=== PATIENT | female | born 1960 | race Caucasian/White ===

== ENCOUNTER 2016-09-19 13:51 | Emergency (ER) | payer MEDICARE ==
[~2016-09-19 13:51] MED LIST: /ESCI20TA; /ESOM40CA; ABIL15TA; ACET500C; ADDE10TA; BACL10TA2; GEOD20CA14; IBUP400T OR; KLON0.5T; MOTR200T4; MOTR200T4 PO; NEUR100C OR; NEUR300C; NEUR300C OR; NEUR400C; PAXI20TA OR; SEROQUEL; TRAM50TA2; TRAZ50TA; XANA2TAB2 OR; ZYPR10TA OR; ZYPR10TA PO; ZYPR15TA; ZYPR5TAB; advair diskus; albuterol; no home medications
[2016-09-19 14:44] LABS: MEAN CORPUSCULAR HEMOGLOBIN 33.9 pg (27.0-33.0); MEAN CORPUSCULAR HGB CONC 33.7 g/dl (32.0-36.5); MEAN CORPUSCULAR VOLUME 100.5 fl (80.0-96.0); RED CELL DISTRIBUTION WIDTH 13.2 % (11.5-14.5); WHITE BLOOD COUNT 5.9 K/mm3 (4.0-10.0)
[2016-09-19 14:56] LABS: AMPHETAMINES LEVEL URINE NEGATIVE (NEGATIVE); BENZODIAZEPINES URINE NEGATIVE (NEGATIVE); COCAINE METABOLITE URINE NEGATIVE (NEGATIVE); CONTROL LINE INT CTR LINE PRESENT; METHADONE URINE NEGATIVE (NEGATIVE); OPIATES URINE NEGATIVE (NEGATIVE); TRICYCLIC ANTIDEPRESS URINE POSITIVE (NEGATIVE)
[2016-09-19 15:16] LABS: ALBUMIN 4.2 GM/DL (3.2-5.2); ALBUMIN/GLOBULIN RATIO 1.68 (1.00-1.93); ALKALINE PHOSPHATASE 84 U/L (45-117); ALT/SGPT 47 U/L (12-78); ANION GAP 8 MEQ/L (8-16); AST/SGOT 23 U/L (15-37); BILIRUBIN,DIRECT 0.1 MG/DL (0.0-0.2); BILIRUBIN,TOTAL 0.4 MG/DL (0.2-1.0); BLOOD UREA NITROGEN 18 MG/DL (7-18); CALCIUM LEVEL 9.4 MG/DL (8.5-10.1); CARBON DIOXIDE LEVEL 27 MEQ/L (21-32); CHLORIDE LEVEL 108 MEQ/L (98-107); CREATININE FOR GFR 0.88 MG/DL (0.55-1.02); GLOMERULAR FILTRATION RATE > 60.0 (>51); GLUCOSE, FASTING 93 MG/DL (70-105); POTASSIUM SERUM 4.1 MEQ/L (3.5-5.1); SODIUM LEVEL 143 MEQ/L (136-145); TOTAL PROTEIN 6.7 GM/DL (6.4-8.2)
--- NOTE | 2016-09-20 10:05 | ECGEPIP ---
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
[2016-09-20] MEDS ORDERED: LORazepam 1 MG TAB As Ordered ONE (11:45)
--- NOTE | 2016-09-20 14:30 | EDDOCDS ---
Physician Documentation [facility] Name: Maria Rosen Age: 56 yrs Sex: Female : 1960 Arrival Date: 09/19/2016 Time: 13:51 Bed OBSERVATION Private MD: Disposition: 09/20/16 13:01 Transfer ordered to [facility]. Diagnosis is Schizophrenia. - Reason for transfer: Higher level of care. - Accepting physician is Dr. Ward. - Condition is Stable. - Problem is an acute exacerbation. - Symptoms are unchanged. Historical: - Allergies: Tramadol HCl; Trazodone; - Home Meds: 1. none - PMHx: Schizophrenia; - PSHx: Unable to obtain; - Social history: Smoking status: Patient uses tobacco products, heavy tobacco smoker. No barriers to communication noted, The patient speaks fluent Portuguese, Speaks appropriately for age. - Family history: Not pertinent. - : The pt / caregiver states he / she is not on anticoagulants. Unable to Verify Home Med List with the patient / caregiver. Note unable to get answers about history. . - Exposure Risk Screening:: None identified. Vital Signs: 09/19 14:20 BP 144 / 86; Pulse 101; Resp 20; Temp 96.1(O); Pulse Ox 97% on R/A; jml1 20:29 BP 124 / 75; Pulse 80; Resp 18; Temp 97.1; Pulse Ox 96% ; Pain 0/10; mas 09/20 03:09 BP 120 / 70; Pulse 81; Resp 18; Temp 96.9(T); Pulse Ox 95% ; Pain 0/10; mas 07:37 BP 133 / 74; Pulse 74; Resp 18; Temp 97.2(T); Pulse Ox 97% on R/A; Pain 0/10; dwg 10:09 BP 119 / 78; Pulse 80; Resp 20; Temp 96.9(T); Pulse Ox 98% on R/A; dwg 14:25 BP 116 / 63; Pulse 70; Resp 18; Temp 97.8; Pulse Ox 97% on R/A; Pain 0/10; ttb MDM: 09/19 14:05 Consult PFS/PSA/Pain Management Specialist ordered. sd1 14:05 Consult PFS/PSA/Pain Management Specialist: Patient's case requires discussion with on-call sd1 Psychiatrist ordered. 14:05 PSA/PFS to call Nursing Bench Machine Operator, to enter patient data on [place] Safe [place] if patient sd1 involuntarily admitted or transferred for SI or HI ordered. 14:05 Confirm accurate psychiatric medication list and times of last dosage ordered. sd1 14:05 Detain Pt Until Medically/PFS Cleared ordered. sd1 14:05 Acetaminophen Level Ordered. EDMS 14:05 Basic Metabolic Profile Ordered. EDMS 14:05 Complete Blood Count Ordered. EDMS 14:05 Drug Eval Toxicology ED Only Ordered. EDMS 14:05 Ethyl Alcohol (ethanol) Ordered. EDMS 14:06 Liver Profile Ordered. EDMS 14:06 Salicylate Level Ordered. EDMS 14:06 Thyroid Stimulating Hormone Ordered. EDMS 15:59 Financial registration complete. zo 16:12 Consult PFS/PSA/Pain Management Specialist complete. ms 16:12 Consult PFS/PSA/Pain Management Specialist: Patient's case requires discussion with on-call ms Psychiatrist complete. 16:12 PSA/PFS to call Nursing Bench Machine Operator, to enter patient data [place] Safe [place] if patient ms involuntarily admitted or transferred for SI or HI complete. 16:45 REGULAR DIET PLASTIC CUEVAS+DIET ordered. EDMS 18:36 [facility] Payment Agreement was scanned into [employer] and attached to record. zo 18:53 ECG WITH READING ER PHYS+CARDIAG ordered. EDMS 20:14 Acetaminophen Level Reviewed. br1 20:14 Basic Metabolic Profile Reviewed. br1 20:14 Complete Blood Count Reviewed. br1 20:14 Drug Eval Toxicology ED Only Reviewed. br1 20:14 Salicylate Level Reviewed. br1 20:14 Ethyl Alcohol (ethanol) Reviewed. br1 20:14 Liver Profile Reviewed. br1 20:14 Thyroid Stimulating Hormone Reviewed. br1 20:14 Consult PFS/PSA/Socail Worker: Cleared medically for eval ordered. br1 20:23 Consult PFS/PSA/Socail Worker: Cleared medically for eval complete. cl 09/20 04:18 REGULAR DIET PLASTIC CUEVAS+DIET ordered. EDMS 07:41 UA Ordered. EDMS 07:43 Urine Culture Ordered. EDMS 11:16 REGULAR DIET PLASTIC CUEVAS+DIET ordered. EDMS 11:33 LORazepam 2 mg PO once ordered. sd1 11:33 UA Reviewed. sd1 Administered Medications: 13:14 Not Given (Patient Refused): LORazepam 2 mg PO once ms18 Signatures: Dispatcher [employer] Elaina Pascual MD MD sd1 Timmy Sawant RN RN bcj Michael, [place], PSA PSA cl Stone, Qing, PSA PSA ms [place], Swapnil Camacho MD MD br1 Dinora Lance RN RN hs1 Di Blankenship RN RN ttJazmin Pyle RN ms18 The chart was reviewed and I authenticate all verbal orders and agree with the evaluation and treatment provided.Attachments: 09/19 18:36 [facility] Payment Agreement zo [id number]
--- NOTE | 2016-09-20 14:30 | EDDOCDS ---
Nurse's Notes [facility] Name: Maria Rosen Age: 56 yrs Sex: Female : 1960 Arrival Date: 09/19/2016 Time: 13:51 Bed OBSERVATION Private MD: Diagnosis: Schizophrenia Presentation: 09/19 14:13 Presenting complaint: Patient states: the police brought me in, I just have had a bad hs1 day. Mental Health Triage Level: Level 2: The patient was brought to the ED for evaluation because of a legal pickup order. Adult Sepsis Screening: The patient does not have new or worsening altered mentation. Patient's respiratory rate is less than 22. Systolic blood pressure is greater than 100. Patient has a qSOFA score of 0- Negative Sepsis Screen. Suicide/Homicide risk assessment- Patient denies SI and HI but presents with another emotional, behavioral or other mental health complaint. The patient reports that he/she has not been admitted to an inpatient mental health facility in the last 30 days. The patient reports that he/she has a recent or current history of substance abuse. The patient reports that he/she has no prior history of suicide attempt and/or organized plan. The patient reports that he/she has experienced a significant life altering event in the last 30 days. The patient reports that he/she lacks adequate social support. The patient reports he/she has no significant chronic medical condition(s). Status: Patient is not a pharmacy tech customer service or dependent. Transition of care: patient was not received from another setting of care. 14:13 Acuity: NETO Level 3 hs1 14:13 Method Of Arrival: Police Car hs1 14:23 Presenting complaint: police states unsafe living arrangements at home. Patient was hs1 found running around outside. Patient had unattended boiling water pots on stove and has been lacking self care. Patient has been noted to be decompensating. HX of bipolar and schizoaffective disorder. Triage Assessment: 14:13 General: Appears unkempt, Behavior is flat. Pain: Denies pain. HIV screening NA for hs1 this visit Offered previously. Respiratory: Airway is patent Respiratory effort is even, unlabored, Respiratory pattern is regular, symmetrical. Historical: - Allergies: Tramadol HCl; Trazodone; - Home Meds: 1. none - PMHx: Schizophrenia; - PSHx: Unable to obtain; - Social history: Smoking status: Patient uses tobacco products, heavy tobacco smoker. No barriers to communication noted, The patient speaks fluent Polish, Speaks appropriately for age. - Family history: Not pertinent. - : The pt / caregiver states he / she is not on anticoagulants. Unable to Verify Home Med List with the patient / caregiver. Note unable to get answers about history. . - Exposure Risk Screening:: None identified. Screenin:59 Screening information is obtained from the patient. Fall risk: No risks identified. me3 Assistance ADL's: requires no assistance with activities of daily living. Abuse/DV Screen: The patient / caregiver reports he/she is: not in a situation that causes fear, pain or injury. Nutritional screening: No deficits noted. Advance Directives: Currently, there is no health care proxy. home support is inadequate. Assessment: 15:15 General: Appears in no apparent distress, comfortable, Behavior is inappropriate for me3 age, pt mumbling to herself. Respiratory: No deficits noted. Airway is patent Respiratory effort is even, unlabored. 16:20 General: Appears in no apparent distress, comfortable, Behavior is cooperative, me3 inappropriate for age, pt in and out of room needing constant redirection. Respiratory: No deficits noted. Airway is patent Respiratory effort is even, unlabored. 17:15 General: Appears unkempt, Behavior is cooperative, inappropriate for age, pt needs much me3 redirection to stay in room. Respiratory: No deficits noted. Airway is patent Respiratory effort is even, unlabored. 18:20 General: Appears in no apparent distress, comfortable, Behavior is cooperative. me3 Respiratory: No deficits noted. Airway is patent Respiratory effort is even, unlabored. 19:55 General: Appears unkempt, Behavior is cooperative. Pain: Denies pain. Derm: Skin is bcj pink, warm & dry. 21:39 General: Appears in no apparent distress, comfortable, Behavior is cooperative. Pain: bcj Denies pain. Derm: Skin is pink, warm & dry. 22:41 General: Appears in no apparent distress, comfortable, Behavior is cooperative. Pain: bcj Denies pain. Derm: Skin is pink, warm & dry. 09/20 00:43 General: Appears in no apparent distress, comfortable, Behavior is cooperative. Pain: bcj Denies pain. Derm: Skin is pink, warm & dry. 01:05 General: Appears in no apparent distress, comfortable, Behavior is cooperative. nn1 Neurological: Level of Consciousness is awake. Respiratory: Airway is patent Respiratory effort is even, unlabored. Derm: Skin is pink, warm & dry. 02:15 General: Patient watching movie at this time. . Respiratory: No deficits noted. Derm: nn1 Skin is pink, warm & dry. 02:53 Reassessment: Patient appears in no apparent distress at this time. General: Patient nn1 continues to watch movie, cooperative at this time. . 03:34 General: Patient continues to wander out of room, patient continues to be redirected nn1 back into room. Patient given decaf coffee, explained to patient why she could not leave [facility] area to smoke. Patient has movie playing in room. . 05:07 General: Appears in no apparent distress, to be sleeping. Behavior is quiet. nn1 Respiratory: No deficits noted. Derm: Skin is pink, warm & dry. 05:44 General: Behavior is anxious, Patient pacing through the hallway, has to be redirected nn1 constantly to return to room. Patient continues to state how she does not want to be here and wants to go home or go outside to smoke. Patient declined nicotine patch. . 07:09 General: Report received from Linh Pulido RN, patient awake and alert, pacing in room, [facility] requesting to go home. Denies feeling suicidal, . 07:36 General: Awake and alert, cooperative, ate all of breakfast tray, continues pacing in [facility] room, VSS, denies feeling suicidal.. 08:49 General: Appears in no apparent distress, Behavior is anxious. General: Pacing in room, [facility] denies feeling suicidal, requesting to go home. Is re-directable . Pain: Denies pain. Neurological: Level of Consciousness is awake, alert, Oriented to person, place. Respiratory: Airway is patent Respiratory effort is even, unlabored, Respiratory pattern is regular, symmetrical. 10:08 General: Appears in no apparent distress, Behavior is cooperative. General: Pacing in [facility] room, cooperative, talking with family on phone.. Pain: Denies pain. Neurological: Level of Consciousness is awake, alert, Oriented to person, place. Respiratory: Airway is patent Respiratory effort is even, unlabored, Respiratory pattern is regular, symmetrical. 11:13 General: Appears in no apparent distress, comfortable, Behavior is anxious, ms18 cooperative, inappropriate for age, Pt continues to come out of her room every few mins asking for various items. Will continue to monitor pt. Neurological: Level of Consciousness is awake, alert. Respiratory: No deficits noted. Derm: Skin is pink, warm & dry. 12:09 General: Pt refusing to take this medication. Pt states that she cannot take it and ms18 keep talking to herself. Pt continues to walk out of her room and ask for a phone. Pt redirected into her room and asked to take her medication. Pt continues to refuse to take it and states that she cannot take it. Respiratory: No deficits noted. Derm: Skin is pink, warm & dry. 13:32 General: report received from MARY Wu to continue care until pt transferred to [facility]. Report stated to be given to RN already. . 14:25 General: Appears in no apparent distress, comfortable, Behavior is inappropriate for ttb age, nonviolent, however not completely cooperative at this time. . General: report given to EMS crew. Neurological: Level of Consciousness is awake, alert. Respiratory: Airway is patent Respiratory effort is even, unlabored. GI: Denies nausea, vomiting. Mental Health Eval: 09/19 16:21 Mental health consult is initiated at 16:00. Status: The patient is not a ms pharmacy tech customer service or dependent. [facility] Behavioral Health: The patient is not an established patient of [facility] Behavioral Health. Referral Information: Evaluation referral is generated by a police agency: [employer]. The patient was referred for evaluation because A shrimp picker order was issued for pt. after an Adult Protective worker found her wandering outside of her apartment when worker went to her house for a visit. Upon going inside, AP worker found pot on stove with burner on and that pt. was disheveled and not taking care of self, has not bathed in quite some time, paranoia was also a concern. 16:28 Subjective: The patients chief complaint is Pt. answers "no" and "I don't know" to ms majority of questions asked. She did state that she was outside earlier today but did not elaborate why. Pt. does appear disheveled. She also appears to be responding to internal stimuli, mumbles frequently to self and stares off. She denies she is on any medications or goes to out-pt. services.. Delusions are paranoid, Patient's mood is anxious, Auditory Hallucinations are suspected. Pt. last admission to this facility was 02/2014 ( several previous). She had dx of Schizoaffective disorder, bipolar type and Substance Abuse.She denies having any next of kin that she wants contacted. Mental Health history: Bipolar Disorder, Schizoaffective Disorder, Bipolar type. Mental Health Admissions: [facility] 02/2014 and previous Current Outpatient Mental Health Services: Unable to Obtain. Current living environment is The patient currently lives alone. Patient presents to Emergency Department with the following symptoms within the past 2 weeks: auditory hallucinations this worker poor concentration, psychosis. 16:47 Substance abuse: Pt denies. Mental status exam: Patients appearance is disheveled ms unkempt, Patient's behavior is superficially cooperative Speech is normal. Affect is appropriate. Mood is anxious. Auditory Hallucinations are suspected. Appetite is poor. Memory is fair. Energy level is normal. Thought process is intact. Cognitive level is oriented to person, place, time and situation Patient's insight is poor. Judgement is fair. Rapport with interviewer is guarded. Suicidal Ideation is denied. Homicidal ideation is denied. 17:13 Disposition: Medically cleared for disposition by Elaina Carrasco MD Psychiatric ms Consult is performed by phone with Dr Micha Lynch MD. [facility] Admission Criteria: The patient displays symptoms of severe psychiatric disorder resulting in disordered behavior and significant interference with his / her ability to maintain self care. Hallucinations. The patient's care requires a multi-modal treatment plan under close supervision and coordination due to the complexity and severity of the patient's symptoms. Legal Status: Patient's legal status will be [employer] admission: 37. [place] because the patient does not display any suicidal or homicidal ideations and does not pose a risk to self or others. DSM-V Differential Diagnosis: Schizoaffective Disorder (F25.0) bipolar type (F25.0). 18:54 Narrative: [facility] is currently at capacity. Chart faxed to Kristopher/[facility] for review, however ml4 is unable to review until tomorrow morning. 22:24 Narrative: Spoke to Hattie \\Germain Summers who confirmed receipt, however MD will review in the ml4 am. States to contact Kristopher in the am for possible acceptance. 23:43 Narrative: EKG completed, faxed as requested... cl Vital Signs: 14:20 BP 144 / 86; Pulse 101; Resp 20; Temp 96.1(O); Pulse Ox 97% on R/A; jml1 20:29 BP 124 / 75; Pulse 80; Resp 18; Temp 97.1; Pulse Ox 96% ; Pain 0/10; mas 09/20 03:09 BP 120 / 70; Pulse 81; Resp 18; Temp 96.9(T); Pulse Ox 95% ; Pain 0/10; mas 07:37 BP 133 / 74; Pulse 74; Resp 18; Temp 97.2(T); Pulse Ox 97% on R/A; Pain 0/10; dwg 10:09 BP 119 / 78; Pulse 80; Resp 20; Temp 96.9(T); Pulse Ox 98% on R/A; dwg 14:25 BP 116 / 63; Pulse 70; Resp 18; Temp 97.8; Pulse Ox 97% on R/A; Pain 0/10; ttb Vitals: 09/19 16:59 Log In time N/A- police car arrival. me3 ED Course: 13:53 Patient visited by Tamra Brown. jp5 13:53 Patient moved to Waiting 5 14:03 Patient moved to [address] 14:14 Psych Safety Check: Location: Psych Room. Visual Assessment: Agitated, Uncooperative. pjf 14:14 Triage Initiated hs1 14:15 Pt greeted and oriented to ED. Patient advised of names of staff involved in care, pjf location of call mccoy, wait times and NPO status. Accompanied by Law Enforcement, lpd - (9.41), Patient has correct armband on for positive identification. Placed in psych safe attire. Bed in low position. Call light in reach. Side rails up X 1. Security observing. 14:15 Property removed, secured in belongings bag- Placed in locker #1. Door closed. Noise pjf minimized. Visitors limited. Report received from loader helper sorting yard - psych, triage level #2, ams, uncooperative \\T\\ this time. The patient / caregiver is instructed regarding the plan of care and ED course. 14:21 Patient visited by Zack Wells. jml1 14:30 Psych Safety Check: Location: Psych Room. Visual Assessment: Cooperative, Confused. pjf 14:33 Amparo Ray LPN is Primary Nurse. me3 14:33 Acetaminophen Level Sent. me3 14:33 Basic Metabolic Profile Sent. me3 14:33 Complete Blood Count Sent. me3 14:33 Drug Eval Toxicology ED Only Sent. me3 14:33 Ethyl Alcohol (ethanol) Sent. me3 14:33 Liver Profile Sent. me3 14:33 Salicylate Level Sent. me3 14:33 Thyroid Stimulating Hormone Sent. me3 14:35 Patient visited by Reginald Shepard Security Aide. pjf 14:39 Elaina Carrasco MD is Attending Physician. sd1 14:58 Patient visited by Reginald Shepard Security Aide. pjf 15:08 Patient visited by Elaina Carrasco MD. sd1 15:58 Patient visited by Reginald Shepard Security Aide. pjf 16:39 Patient visited by Reginald Shepard Security Aide. pjf 17:10 Patient visited by Reginald Shepard Security Aide. pjf 17:12 psych. safety checks completed at approx. 15 min. intervals from 14:30 to the time of pjf this entry. pt. remains cooperative. 17:17 Patient visited by Reginald Shepard Security Aide. pjf 17:31 Patient visited by Reginald Shepard Security Aide. pjf 18:05 Patient visited by Amparo Ray LPN. me3 18:15 Patient visited by Reginald Shepard Security Aide. pjf 18:30 Patient visited by Reginald Shepard Security Aide. pjf 18:36 [facility] Payment Agreement was scanned into [employer] and attached to record. zo 19:06 Patient visited by Reginald Shepard Security Aide. pjf 19:24 Patient visited by Reginald Shepard Security Aide. pjf 19:34 Patient visited by Timmy Sawant RN. bcj 19:46 Patient visited by Benny Garnett. mas 19:55 No apparent distress. Resting quietly. bcj 19:55 Security observing. bcj 19:55 Labs drawn. (by ED staff). Sent per order to lab. Urine collected. Clean catch [facility] specimen. Urine specimen sent to lab. 19:56 Patient visited by Timmy Sawant RN. bcj 20:00 Patient visited by Benny Garnett. mas 20:14 Attending Physician role handed off by Elaina Carrasco MD br1 20:14 Swapnil Myers MD is Attending Physician. br1 20:15 Patient moved to OBSERVATION br1 20:16 Patient visited by Benny Garnett. mas 20:29 Patient visited by Benny Garnett. mas 20:41 Patient visited by Benny Garnett. mas 21:04 Patient visited by Benny Garnett. mas 21:19 Patient visited by Benny Garnett. mas 21:30 Patient visited by Benny Garnett. mas 21:39 Resting quietly. Awaiting disposition. bcj 21:39 Security observing. bcj 21:40 Patient visited by Timmy Sawant RN. bcj 22:01 Patient visited by Benny Garnett. mas 22:32 Patient visited by Benny Garnett. mas 22:41 Resting quietly. Awaiting disposition. bcj 22:41 Security observing. bcj 22:42 Patient visited by Timmy Sawant RN. bcj 22:45 Patient visited by Benny Garnett. mas 22:45 Patient visited by Timmy Sawant RN. bcj 23:02 Patient visited by Benny Garnett. mas 23:15 Patient visited by Benny Garnett. mas 23:30 Patient visited by Benny Garnett. mas 23:36 Patient visited by Reyna Lowe. ajs 23:36 EKG done. (by ED staff). Reviewed by Swapnil Myers MD. ajs 23:49 Patient visited by Benny Garnett. mas 09/20 00:43 No apparent distress. Pt. is pacing. Awaiting disposition. bcj 00:43 Security observing. bcj 00:44 Patient visited by Timmy Sawant RN. bcj 01:17 Patient visited by Benny Garnett. mas 01:32 Patient visited by Benny Garnett. mas 01:47 Patient visited by Benny Garnett. mas 02:02 Patient visited by Benny Garnett. mas 02:18 Patient visited by Benny Garnett. mas 02:32 Patient visited by Benny Garnett. mas 02:46 Patient visited by Benny Garnett. mas 03:01 Patient visited by Benny Garnett. mas 03:15 Patient visited by Benny Garnett. mas 03:24 Patient visited by Benny Garnett. mas 03:39 Patient visited by Benny Garnett. mas 03:50 Patient visited by Benny Garnett. mas 04:00 Patient visited by Benny Garnett. mas 04:15 Patient visited by Benny Garnett. mas 04:37 Patient visited by Benny Garnett. mas 04:55 Patient visited by Benny Garnett. mas 05:00 Patient visited by Benny Garnett. mas 05:19 Patient visited by Dinesh Arias. rn1 05:39 Patient visited by Benny Garnett. mas 05:45 Patient visited by Benny Garnett. mas 06:00 Patient visited by Benny Garnett. mas 06:15 Patient visited by Benny Garnett. mas 06:32 Patient visited by Benny Garnett. mas 06:45 Patient visited by Benny Garnett. mas 06:47 Patient visited by Benny Garnett. mas 07:11 Patient visited by Mendez Jimenez RN. dwg 07:12 Attending Physician role handed off by Swapnil Myers MD sd1 07:12 Elaina Carrasco MD is Attending Physician. sd1 07:21 Patient visited by Reginald Shepard Security Aide. pjf 07:37 Patient visited by Reginald Shepard Security Aide. pjf 07:38 Patient visited by Mendez Jimenez RN. dwg 07:49 Patient visited by Reginald Shepard Security Aide. pjf 08:07 Patient visited by Reginald Shepard Security Aide. pjf 08:20 Patient visited by Reginald Shepard Security Aide. pjf 08:36 Psych Safety Check: Location: Psych Room. Visual Assessment: Restless, Agitated. pjf 08:38 Urine Culture Sent. dwg 08:38 UA Sent. dwg 08:41 Psych Safety Check: Location: Psych Room. Visual Assessment: Restless, Agitated. pjf 08:51 Patient visited by Mendez Jimenez RN. dwg 08:54 Patient visited by Reginald Shpeard Security Aide. pjf 09:14 Patient visited by Reginald Shepard Security Aide. pjf 09:31 Patient visited by Reginald Shepard Security Aide. pjf 09:45 Psych Safety Check: Location: Psych Room. Visual Assessment: Cooperative. pjf 10:00 Patient visited by Reginald Shepard Security Aide. pjf 10:06 EKG-ADULT Returned. EDMS 10:10 Patient visited by Mendez Jimenez RN. dwg 10:15 Patient visited by Reginald Shepard Security Aide. pjf 10:23 Psych Safety Check: Location: Psych Room. Visual Assessment: Restless, Agitated. pjf 10:32 Patient visited by Reginald Shepard Security Aide. pjf 10:38 Shower given. pjf 10:44 Patient visited by Reginald Shepard Security Aide. pjf 10:59 Patient visited by Landon Finch PCA. jrd 11:14 Patient visited by Landon Finch PCA. jrd 11:16 Psych Safety Check: Location: Psych Room. Visual Assessment: Agitated, Confused, jrd Patient is speaking to herself and coming out of the room stating that she does not need to be evaluated. 11:22 Patient visited by Landon Finch PCA. jrd 11:29 Patient visited by Landon Finch PCA. jrd 11:30 Psych Safety Check: Location: Visual Assessment: Restless, Agitated, Uncooperative. jrd 11:45 Pt greeted and oriented to ED. Patient advised of names of staff involved in care, jrd location of call mccoy, wait times and NPO status. Psych Safety Check: Location: Psych Room. Visual Assessment: Restless, Agitated, Uncooperative. 12:09 Patient visited by Jazmin Rush RN. ms18 13:00 Psych Safety Check: Location: Psych Room. Visual Assessment: Restless, Agitated. nb2 13:07 Patient visited by Sangita Jhaveri. nb2 13:16 Patient visited by Sangita Jhaveri. nb2 13:16 Psych Safety Check: Location: Psych Room. Visual Assessment: Restless. nb2 13:33 Patient visited by Di Blankenship RN. ttb 14:25 No IV's were initiated during this patient's visit. No procedures done that require ttb assistance. Administered Medications: 13:14 Not Given (Patient Refused): LORazepam 2 mg PO once ms18 Order Results: Lab Order: Acetaminophen Level; SPEC' 09/19/16 14:29 Test: ACETAMINOPHEN LEVEL; Value: < 2.0; Range: 10.0-30.0; Abnormal: Below low normal; Units: UG/ML; Status: F Lab Order: Basic Metabolic Profile; SPEC' 09/19/16 14:29 Test: GLUCOSE, FASTING; Value: 93; Range: 70-105; Units: MG/DL; Status: F Test: BLOOD UREA NITROGEN; Value: 18; Range: 7-18; Units: MG/DL; Status: F Test: CREATININE FOR GFR; Value: 0.88; Range: 0.55-1.02; Units: MG/DL; Status: F Test: GLOMERULAR FILTRATION RATE; Value: > 60.0; Range: >51; Status: F Test: SODIUM LEVEL; Value: 143; Range: 136-145; Units: MEQ/L; Status: F Test: POTASSIUM SERUM; Value: 4.1; Range: 3.5-5.1; Units: MEQ/L; Status: F Test: CHLORIDE LEVEL; Value: 108; Range: 98-107; Abnormal: Above high normal; Units: MEQ/L; Status: F Test: CARBON DIOXIDE LEVEL; Value: 27; Range: 21-32; Units: MEQ/L; Status: F Test: ANION GAP; Value: 8; Range: 8-16; Units: MEQ/L; Status: F Test: CALCIUM LEVEL; Value: 9.4; Range: 8.5-10.1; Units: MG/DL; Status: F Test Note: ; Units are mL/min/1.73 m2 Chronic Kidney Disease Staging per NKF: Stage I & II GFR >=60 Normal to Mildly Decreased Stage III GFR 30-59 Moderately Decreased Stage IV GFR 15-29 Severely Decreased Stage V GFR <15 Very Little GFR Left ESRD GFR <15 on WILDLIFE SCIENCE PROFESSOR Lab Order: Complete Blood Count; SPEC' 09/19/16 14:29 Test: WHITE BLOOD COUNT; Value: 5.9; Range: 4.0-10.0; Units: K/mm3; Status: F Test: RED BLOOD COUNT; Value: 4.05; Range: 4.00-5.40; Units: M/mm3; Status: F Test: HEMOGLOBIN; Value: 13.7; Range: 12.0-16.0; Units: g/dl; Status: F Test: HEMATOCRIT; Value: 40.7; Range: 36.0-47.0; Units: %; Status: F Test: MEAN CORPUSCULAR VOLUME; Value: 100.5; Range: 80.0-96.0; Abnormal: Above high normal; Units: fl; Status: F Test: MEAN CORPUSCULAR HEMOGLOBIN; Value: 33.9; Range: 27.0-33.0; Abnormal: Above high normal; Units: pg; Status: F Test: MEAN CORPUSCULAR HGB CONC; Value: 33.7; Range: 32.0-36.5; Units: g/dl; Status: F Test: RED CELL DISTRIBUTION WIDTH; Value: 13.2; Range: 11.5-14.5; Units: %; Status: F Test: PLATELET COUNT, AUTOMATED; Value: 348; Range: 150-450; Units: k/mm3; Status: F Lab Order: Drug Eval Toxicology ED Only; SPEC'M 09/19/16 14:32 Test: AMPHETAMINES LEVEL URINE; Value: NEGATIVE; Range: NEGATIVE; Status: F Test: BARBITURATES URINE; Value: NEGATIVE; Range: NEGATIVE; Status: F Test: BENZODIAZEPINES URINE; Value: NEGATIVE; Range: NEGATIVE; Status: F Test: CANNABINOIDS URINE; Value: NEGATIVE; Range: NEGATIVE; Status: F Test: COCAINE METABOLITE URINE; Value: NEGATIVE; Range: NEGATIVE; Status: F Test: METHADONE URINE; Value: NEGATIVE; Range: NEGATIVE; Status: F Test: OPIATES URINE; Value: NEGATIVE; Range: NEGATIVE; Status: F Test: TRICYCLIC ANTIDEPRESS URINE; Value: POSITIVE; Range: NEGATIVE; Abnormal: Above high normal; Status: F Test Note: ; ALL PRESUMPTIVE POSITIVE FINDINGS ARE UNCONFIRMED NORMAL VALUES THRESHOLD IN NG/ML AMPHETAMINES 1000 METHAMPHETAMINES 1000 BARBITURATES 300 BENZODIAZEPINES 300 CANNABINOIDS (THC) 50 COCAINE METABOLITE 300 METHADONE 300 OPIATES 300 PHENCYCLIDINE 25 TRICYCLIC ANTIDEPRESSANTS 1000 RESULTS ARE FOR MEDICAL PURPOSES ONLY. ALL URINE SPECIMENS WILL BE SAVED FOR 3 DAYS. IF CONFIRMATION OF A PRESUMPTIVE POSTIVE SCREEN RESULT IS DESIRED, CALL CHEMISTRY ([phone]) AND REQUEST URINE TO BE SENT TO REFERENCE LAB. FOR A LIST OF CLOSELY RELATED COMPOUNDS PLEASE CALL THE LAB. Lab Order: Ethyl Alcohol (ethanol); [facility]' 09/19/16 14:29 Test: ETHYL ALCOHOL (ETHANOL); Value: < 0.003; Range: 0.000-0.010; Units: %; Status: F Lab Order: Liver Profile; [facility]' 09/19/16 14:29 Test: AST/SGOT; Value: 23; Range: 15-37; Units: U/L; Status: F Test: ALT/SGPT; Value: 47; Range: 12-78; Units: U/L; Status: F Test: ALKALINE PHOSPHATASE; Value: 84; Range: 45-117; Units: U/L; Status: F Test: BILIRUBIN,TOTAL; Value: 0.4; Range: 0.2-1.0; Units: MG/DL; Status: F Test: BILIRUBIN,DIRECT; Value: 0.1; Range: 0.0-0.2; Units: MG/DL; Status: F Test: TOTAL PROTEIN; Value: 6.7; Range: 6.4-8.2; Units: GM/DL; Status: F Test: ALBUMIN; Value: 4.2; Range: 3.2-5.2; Units: GM/DL; Status: F Test: ALBUMIN/GLOBULIN RATIO; Value: 1.68; Range: 1.00-1.93; Status: F Lab Order: Salicylate Level; [facility] 09/19/16 14:29 Test: SALICYLATE LEVEL; Value: 2.4; Range: 5.0-30.0; Abnormal: Below low normal; Units: MG/DL; Status: F Lab Order: Thyroid Stimulating Hormone; [facility]' 09/19/16 14:29 Test: THYROID STIMULATING HORMONE; Value: 0.690; Range: 0.358-3.740; Units: uIU/ML; Status: F Lab Order: UA; [facility] 09/20/16 08:35 Test: APPEARANCE, URINE; Value: CLEAR; Range: CLEAR; Status: F Test: COLOR, URINE; Value: STRAW; Range: YELLOW; Status: F Test: PH,URINE; Value: 6.0; Range: 5.0-9.0; Units: UNITS; Status: F Test: SPECIFIC GRAVITY URINE AUTO; Value: 1.002; Range: 1.002-1.035; Status: F Test: PROTEIN, URINE AUTO; Value: NEGATIVE; Range: NEGATIVE; Units: mg/dL; Status: F Test: GLUCOSE, URINE (UA) AUTO; Value: NEGATIVE; Range: NEGATIVE; Units: mg/dL; Status: F Test: KETONE, URINE AUTO; Value: NEGATIVE; Range: NEGATIVE; Units: mg/dL; Status: F Test: UROBILINOGEN, URINE AUTO; Value: 0.2; Range: 0.0-2.0; Units: mg/dL; Status: F Test: BILIRUBIN, URINE AUTO; Value: NEGATIVE; Range: NEGATIVE; Status: F Test: NITRITE, URINE AUTO; Value: NEGATIVE; Range: NEGATIVE; Status: F Test: LEUKOCYTE ESTERASE, URINE AUTO; Value: TRACE; Range: NEGATIVE; Abnormal: Above high normal; Status: F Test: BLOOD, URINE BLOOD; Value: NEGATIVE; Range: NEGATIVE; Status: F Test: WBC, URINE AUTO; Value: 3; Range: 0-3; Units: /HPF; Status: F Test: RBC, URINE AUTO; Value: 0; Range: 0-3; Units: /HPF; Status: F Test: BACTERIA, URINE AUTO; Value: NEGATIVE; Range: NEGATIVE; Status: F Test: SQUAMOUS EPITHELIAL CELL UR AU; Value: 1; Range: 0-6; Units: /HPF; Status: F Test: HYALINE CAST, URINE AUTO; Value: 0; Range: 0-1; Units: /LPF; Status: F Outcome: 13:01 ER care complete, transfer ordered by Provider. sd1 14:25 Discharge Assessment: Patient awake and alert. patient administered narcotics - no. The ttb following High Risk Discharge criteria are identified: Yes, transfer . Transferred by EMS ground [facility] ambulance report to accompanying personnel Ernesto Salvador & Justine Colbert . Condition: stable. No special radiology studies were completed. Property given to EMS transport crew. 14:30 Patient left the ED. ttb Signatures: Dispatcher [employer] EDElaina Olvera MD MD sd1 Mendez Jimenez, RN RN dwg Timmy Sawant, RN RN bcj Michael, [place], PSA PSA cl Stone, Qing, PSA PSA ms Reginald Shepard, Security Aide Securpjf Cory,Amparo,APPRENTICE PLANT ATTENDANT APPRENTICE PLANT ATTENDANT me3 Caroline Bagley, PSA PSA ml4 Yadira Aguilar Brian, MD MD br1 Dinora Lance, RN RN hs1 Benny Garnett, Zack Sanchez jml1 Di Blankenship, RN RN ttb Jazmin Rush,RN RN ms18 Stef, Landon, WASTEWATER TREATMENT SUPERVISOR WASTEWATER TREATMENT SUPERVISOR d Dinesh Arias rn1 Kristan Pulido,RN RN nn1 Tamra Brown jp5 Sangita Jhaveri2 Corrections: (The following items were deleted from the chart) 09/19 16:44 16:21 Referral Information: Evaluation referral is generated by ms ms 16:56 16:28 Patient presents to Emergency Department with the following symptoms within the ms past 2 weeks: auditory hallucinations this worker ms 17:12 16:41 Pt greeted and oriented to ED. Patient advised of names of staff involved in pjf care, location of call [place], wait times and NPO status. pjf 17:12 16:41 Accompanied by Law Enforcement, adrian - (9.41), pjf pjf 17:16 16:21 Referral Information: Evaluation referral is generated by a police agency: ms [place] [employer]. The patient was referred for evaluation because A shrimp picker order was issued for pt. after an Adult Protective worker found her wandering outside of her apartment when worker went to her house for a visit. Upon going inside, AP worker found pot on stove with burner on and that pt. was disheveled and not taking care of self.. ms 17:16 16:28 Subjective: The patients chief complaint is Pt. answers "no" and "I don't know" ms to majority of questions asked. She did state that she was outside earlier today but did not elaborate why. Pt. does appear disheveled. She also appears to be responding to internal stimuli, mumbles frequently to self and stares off. She denies she is on any medications or goes to out-pt. services.. Delusions are Patient's mood is Auditory Hallucinations are suspected. Pt. last admission to this facility was 02/2014 ( several previous). She had dx of Schizoaffective disorder, bipolar type and Substance Abuse.She denies having any next of kin that she wants contacted ms [facility]
[2016-09-20] MEDS ORDERED: HALOPERIDOL 5 MG/ML VIAL (J1630) As Ordered ONE (14:58)
[2016-09-20] MEDS ORDERED: LORazepam 2 MG/ML VIAL (J2060) As Ordered ONE (14:58)
[2016-09-20] MEDS ORDERED: diphenhydrAMINE INJ 50MG/ML VIAL (J1200) As Ordered ONE (14:58)
--- NOTE | 2016-09-20 15:27 | EDDOCDS ---
Nurse's Notes [facility] Name: Maria Rosen Age: 56 yrs Sex: Female : 1960 Arrival Date: 09/19/2016 Time: 13:51 Bed OBSERVATION Private MD: Diagnosis: Schizophrenia Presentation: 09/19 14:13 Presenting complaint: Patient states: the police brought me in, I just have had a bad hs1 day. Mental Health Triage Level: Level 2: The patient was brought to the ED for evaluation because of a legal pickup order. Adult Sepsis Screening: The patient does not have new or worsening altered mentation. Patient's respiratory rate is less than 22. Systolic blood pressure is greater than 100. Patient has a qSOFA score of 0- Negative Sepsis Screen. Suicide/Homicide risk assessment- Patient denies SI and HI but presents with another emotional, behavioral or other mental health complaint. The patient reports that he/she has not been admitted to an inpatient mental health facility in the last 30 days. The patient reports that he/she has a recent or current history of substance abuse. The patient reports that he/she has no prior history of suicide attempt and/or organized plan. The patient reports that he/she has experienced a significant life altering event in the last 30 days. The patient reports that he/she lacks adequate social support. The patient reports he/she has no significant chronic medical condition(s). Status: Patient is not a patient services specialist or dependent. Transition of care: patient was not received from another setting of care. 14:13 Acuity: NETO Level 3 hs1 14:13 Method Of Arrival: Police Car hs1 14:23 Presenting complaint: police states unsafe living arrangements at home. Patient was hs1 found running around outside. Patient had unattended boiling water pots on stove and has been lacking self care. Patient has been noted to be decompensating. HX of bipolar and schizoaffective disorder. Triage Assessment: 14:13 General: Appears unkempt, Behavior is flat. Pain: Denies pain. HIV screening NA for hs1 this visit Offered previously. Respiratory: Airway is patent Respiratory effort is even, unlabored, Respiratory pattern is regular, symmetrical. Historical: - Allergies: Tramadol HCl; Trazodone; - Home Meds: 1. none - PMHx: Schizophrenia; - PSHx: Unable to obtain; - Social history: Smoking status: Patient uses tobacco products, heavy tobacco smoker. No barriers to communication noted, The patient speaks fluent British, Speaks appropriately for age. - Family history: Not pertinent. - : The pt / caregiver states he / she is not on anticoagulants. Unable to Verify Home Med List with the patient / caregiver. Note unable to get answers about history. . - Exposure Risk Screening:: None identified. Screenin:59 Screening information is obtained from the patient. Fall risk: No risks identified. me3 Assistance ADL's: requires no assistance with activities of daily living. Abuse/DV Screen: The patient / caregiver reports he/she is: not in a situation that causes fear, pain or injury. Nutritional screening: No deficits noted. Advance Directives: Currently, there is no health care proxy. home support is inadequate. Assessment: 15:15 General: Appears in no apparent distress, comfortable, Behavior is inappropriate for me3 age, pt mumbling to herself. Respiratory: No deficits noted. Airway is patent Respiratory effort is even, unlabored. 16:20 General: Appears in no apparent distress, comfortable, Behavior is cooperative, me3 inappropriate for age, pt in and out of room needing constant redirection. Respiratory: No deficits noted. Airway is patent Respiratory effort is even, unlabored. 17:15 General: Appears unkempt, Behavior is cooperative, inappropriate for age, pt needs much me3 redirection to stay in room. Respiratory: No deficits noted. Airway is patent Respiratory effort is even, unlabored. 18:20 General: Appears in no apparent distress, comfortable, Behavior is cooperative. me3 Respiratory: No deficits noted. Airway is patent Respiratory effort is even, unlabored. 19:55 General: Appears unkempt, Behavior is cooperative. Pain: Denies pain. Derm: Skin is bcj pink, warm & dry. 21:39 General: Appears in no apparent distress, comfortable, Behavior is cooperative. Pain: bcj Denies pain. Derm: Skin is pink, warm & dry. 22:41 General: Appears in no apparent distress, comfortable, Behavior is cooperative. Pain: bcj Denies pain. Derm: Skin is pink, warm & dry. 09/20 00:43 General: Appears in no apparent distress, comfortable, Behavior is cooperative. Pain: bcj Denies pain. Derm: Skin is pink, warm & dry. 01:05 General: Appears in no apparent distress, comfortable, Behavior is cooperative. nn1 Neurological: Level of Consciousness is awake. Respiratory: Airway is patent Respiratory effort is even, unlabored. Derm: Skin is pink, warm & dry. 02:15 General: Patient watching movie at this time. . Respiratory: No deficits noted. Derm: nn1 Skin is pink, warm & dry. 02:53 Reassessment: Patient appears in no apparent distress at this time. General: Patient nn1 continues to watch movie, cooperative at this time. . 03:34 General: Patient continues to wander out of room, patient continues to be redirected nn1 back into room. Patient given decaf coffee, explained to patient why she could not leave [facility] area to smoke. Patient has movie playing in room. . 05:07 General: Appears in no apparent distress, to be sleeping. Behavior is quiet. nn1 Respiratory: No deficits noted. Derm: Skin is pink, warm & dry. 05:44 General: Behavior is anxious, Patient pacing through the hallway, has to be redirected nn1 constantly to return to room. Patient continues to state how she does not want to be here and wants to go home or go outside to smoke. Patient declined nicotine patch. . 07:09 General: Report received from Linh Pulido RN, patient awake and alert, pacing in room, [facility] requesting to go home. Denies feeling suicidal, . 07:36 General: Awake and alert, cooperative, ate all of breakfast tray, continues pacing in [facility] room, VSS, denies feeling suicidal.. 08:49 General: Appears in no apparent distress, Behavior is anxious. General: Pacing in room, [facility] denies feeling suicidal, requesting to go home. Is re-directable . Pain: Denies pain. Neurological: Level of Consciousness is awake, alert, Oriented to person, place. Respiratory: Airway is patent Respiratory effort is even, unlabored, Respiratory pattern is regular, symmetrical. 10:08 General: Appears in no apparent distress, Behavior is cooperative. General: Pacing in [facility] room, cooperative, talking with family on phone.. Pain: Denies pain. Neurological: Level of Consciousness is awake, alert, Oriented to person, place. Respiratory: Airway is patent Respiratory effort is even, unlabored, Respiratory pattern is regular, symmetrical. 11:13 General: Appears in no apparent distress, comfortable, Behavior is anxious, ms18 cooperative, inappropriate for age, Pt continues to come out of her room every few mins asking for various items. Will continue to monitor pt. Neurological: Level of Consciousness is awake, alert. Respiratory: No deficits noted. Derm: Skin is pink, warm & dry. 12:09 General: Pt refusing to take this medication. Pt states that she cannot take it and ms18 keep talking to herself. Pt continues to walk out of her room and ask for a phone. Pt redirected into her room and asked to take her medication. Pt continues to refuse to take it and states that she cannot take it. Respiratory: No deficits noted. Derm: Skin is pink, warm & dry. 13:32 General: report received from MARY Wu to continue care until pt transferred to [facility]. Report stated to be given to RN already. . 14:25 General: Appears in no apparent distress, comfortable, Behavior is inappropriate for ttb age, nonviolent, however not completely cooperative at this time. . General: report given to EMS crew. Neurological: Level of Consciousness is awake, alert. Respiratory: Airway is patent Respiratory effort is even, unlabored. GI: Denies nausea, vomiting. Mental Health Eval: 09/19 16:21 Mental health consult is initiated at 16:00. Status: The patient is not a ms patient services specialist or dependent. [facility] Behavioral Health: The patient is not an established patient of [facility] Behavioral Health. Referral Information: Evaluation referral is generated by a police agency: [employer]. The patient was referred for evaluation because A slat pickler order was issued for pt. after an Adult Protective worker found her wandering outside of her apartment when worker went to her house for a visit. Upon going inside, AP worker found pot on stove with burner on and that pt. was disheveled and not taking care of self, has not bathed in quite some time, paranoia was also a concern. 16:28 Subjective: The patients chief complaint is Pt. answers "no" and "I don't know" to ms majority of questions asked. She did state that she was outside earlier today but did not elaborate why. Pt. does appear disheveled. She also appears to be responding to internal stimuli, mumbles frequently to self and stares off. She denies she is on any medications or goes to out-pt. services.. Delusions are paranoid, Patient's mood is anxious, Auditory Hallucinations are suspected. Pt. last admission to this facility was 02/2014 ( several previous). She had dx of Schizoaffective disorder, bipolar type and Substance Abuse.She denies having any next of kin that she wants contacted. Mental Health history: Bipolar Disorder, Schizoaffective Disorder, Bipolar type. Mental Health Admissions: [facility] 02/2014 and previous Current Outpatient Mental Health Services: Unable to Obtain. Current living environment is The patient currently lives alone. Patient presents to Emergency Department with the following symptoms within the past 2 weeks: auditory hallucinations this worker poor concentration, psychosis. 16:47 Substance abuse: Pt denies. Mental status exam: Patients appearance is disheveled ms unkempt, Patient's behavior is superficially cooperative Speech is normal. Affect is appropriate. Mood is anxious. Auditory Hallucinations are suspected. Appetite is poor. Memory is fair. Energy level is normal. Thought process is intact. Cognitive level is oriented to person, place, time and situation Patient's insight is poor. Judgement is fair. Rapport with interviewer is guarded. Suicidal Ideation is denied. Homicidal ideation is denied. 17:13 Disposition: Medically cleared for disposition by Elaina Carrasco MD Psychiatric ms Consult is performed by phone with Dr Micha Lynch MD. [facility] Admission Criteria: The patient displays symptoms of severe psychiatric disorder resulting in disordered behavior and significant interference with his / her ability to maintain self care. Hallucinations. The patient's care requires a multi-modal treatment plan under close supervision and coordination due to the complexity and severity of the patient's symptoms. Legal Status: Patient's legal status will be [employer] Community [employer] admission: 37. [place] because the patient does not display any suicidal or homicidal ideations and does not pose a risk to self or others. DSM-V Differential Diagnosis: Schizoaffective Disorder (F25.0) bipolar type (F25.0). 18:54 Narrative: [facility] is currently at capacity. Chart faxed to [facility] [place], however ml4 is unable to review until tomorrow morning. 22:24 Narrative: Spoke to Hattie \\Germain Summers who confirmed receipt, however MD will review in the ml4 am. States to contact [facility] in the am for possible acceptance. 23:43 Narrative: EKG completed, faxed as requested... cl Vital Signs: 14:20 BP 144 / 86; Pulse 101; Resp 20; Temp 96.1(O); Pulse Ox 97% on R/A; jml1 20:29 BP 124 / 75; Pulse 80; Resp 18; Temp 97.1; Pulse Ox 96% ; Pain 0/10; mas 09/20 03:09 BP 120 / 70; Pulse 81; Resp 18; Temp 96.9(T); Pulse Ox 95% ; Pain 0/10; mas 07:37 BP 133 / 74; Pulse 74; Resp 18; Temp 97.2(T); Pulse Ox 97% on R/A; Pain 0/10; dwg 10:09 BP 119 / 78; Pulse 80; Resp 20; Temp 96.9(T); Pulse Ox 98% on R/A; dwg 14:25 BP 116 / 63; Pulse 70; Resp 18; Temp 97.8; Pulse Ox 97% on R/A; Pain 0/10; ttb Vitals: 09/19 16:59 Log In time N/A- police car arrival. me3 ED Course: 13:53 Patient visited by Tamra Brown. jp5 13:53 Patient moved to Waiting 5 14:03 Patient moved to [address] 14:14 Psych Safety Check: Location: Psych Room. Visual Assessment: Agitated, Uncooperative. pjf 14:14 Triage Initiated hs1 14:15 Pt greeted and oriented to ED. Patient advised of names of staff involved in care, pjf location of call mccoy, wait times and NPO status. Accompanied by Law Enforcement, lpd - (9.41), Patient has correct armband on for positive identification. Placed in psych safe attire. Bed in low position. Call light in reach. Side rails up X 1. Security observing. 14:15 Property removed, secured in belongings bag- Placed in locker #1. Door closed. Noise pjf minimized. Visitors limited. Report received from tub washer - psych, triage level #2, ams, uncooperative \\T\\ this time. The patient / caregiver is instructed regarding the plan of care and ED course. 14:21 Patient visited by Zack Wells. jml1 14:30 Psych Safety Check: Location: Psych Room. Visual Assessment: Cooperative, Confused. pjf 14:33 Amparo Ray LPN is Primary Nurse. me3 14:33 Acetaminophen Level Sent. me3 14:33 Basic Metabolic Profile Sent. me3 14:33 Complete Blood Count Sent. me3 14:33 Drug Eval Toxicology ED Only Sent. me3 14:33 Ethyl Alcohol (ethanol) Sent. me3 14:33 Liver Profile Sent. me3 14:33 Salicylate Level Sent. me3 14:33 Thyroid Stimulating Hormone Sent. me3 14:35 Patient visited by Reginald Shepard Security Aide. pjf 14:39 Elaina Carrasco MD is Attending Physician. sd1 14:58 Patient visited by Reginald Shepard Security Aide. pjf 15:08 Patient visited by Elaina Carrasco MD. sd1 15:58 Patient visited by Reginald Shepard Security Aide. pjf 16:39 Patient visited by Reginald Shepard Security Aide. pjf 17:10 Patient visited by Reginald Shepard Security Aide. pjf 17:12 psych. safety checks completed at approx. 15 min. intervals from 14:30 to the time of pjf this entry. pt. remains cooperative. 17:17 Patient visited by Reginald Shepard Security Aide. pjf 17:31 Patient visited by Reginald Shepard Security Aide. pjf 18:05 Patient visited by Amparo Ray LPN. me3 18:15 Patient visited by Reginald Shepard Security Aide. pjf 18:30 Patient visited by Reginald Shepard Security Aide. pjf 18:36 [facility] Payment Agreement was scanned into [employer] and attached to record. zo 19:06 Patient visited by Reginald Shepard Security Aide. pjf 19:24 Patient visited by Reginald Shepard Security Aide. pjf 19:34 Patient visited by Timmy Sawant RN. bcj 19:46 Patient visited by Benny Garnett. mas 19:55 No apparent distress. Resting quietly. bcj 19:55 Security observing. bcj 19:55 Labs drawn. (by ED staff). Sent per order to lab. Urine collected. Clean catch [facility] specimen. Urine specimen sent to lab. 19:56 Patient visited by Timmy Sawant RN. bcj 20:00 Patient visited by Benny Garnett. mas 20:14 Attending Physician role handed off by Elaina Carrasco MD br1 20:14 Swapnil Myers MD is Attending Physician. br1 20:15 Patient moved to OBSERVATION br1 20:16 Patient visited by Benny Garnett. mas 20:29 Patient visited by Benny Garnett. mas 20:41 Patient visited by Benny Garnett. mas 21:04 Patient visited by Benny Garnett. mas 21:19 Patient visited by Benny Garnett. mas 21:30 Patient visited by Benny Garnett. mas 21:39 Resting quietly. Awaiting disposition. bcj 21:39 Security observing. bcj 21:40 Patient visited by Timmy Sawant RN. bcj 22:01 Patient visited by Benny Garnett. mas 22:32 Patient visited by Benny Garnett. mas 22:41 Resting quietly. Awaiting disposition. bcj 22:41 Security observing. bcj 22:42 Patient visited by Timmy Sawant RN. bcj 22:45 Patient visited by Benny Garnett. mas 22:45 Patient visited by Timmy Sawant RN. bcj 23:02 Patient visited by Benny Garnett. mas 23:15 Patient visited by Benny Garnett. mas 23:30 Patient visited by Benny Garnett. mas 23:36 Patient visited by Reyna Lowe. ajs 23:36 EKG done. (by ED staff). Reviewed by Swapnil Myers MD. ajs 23:49 Patient visited by Benny Garnett. mas 09/20 00:43 No apparent distress. Pt. is pacing. Awaiting disposition. bcj 00:43 Security observing. bcj 00:44 Patient visited by Timmy Sawant RN. bcj 01:17 Patient visited by Benny Garnett. mas 01:32 Patient visited by Benny Garnett. mas 01:47 Patient visited by Benny Garnett. mas 02:02 Patient visited by Benny Garnett. mas 02:18 Patient visited by Benny Garnett. mas 02:32 Patient visited by Benny Garnett. mas 02:46 Patient visited by Benny Garnett. mas 03:01 Patient visited by Benny Garnett. mas 03:15 Patient visited by Benny Garnett. mas 03:24 Patient visited by Benny Garnett. mas 03:39 Patient visited by Benny Garnett. mas 03:50 Patient visited by Benny Garnett. mas 04:00 Patient visited by Benny Garnett. mas 04:15 Patient visited by Benny Garnett. mas 04:37 Patient visited by Benny Garntet. mas 04:55 Patient visited by Benny Garnett. mas 05:00 Patient visited by Benny Garnett. mas 05:19 Patient visited by Dinesh Arias. rn1 05:39 Patient visited by Benny Garnett. mas 05:45 Patient visited by Benny Garnett. mas 06:00 Patient visited by Benny Garnett. mas 06:15 Patient visited by Benny Garnett. mas 06:32 Patient visited by Benny Garnett. mas 06:45 Patient visited by Benny Garnett. mas 06:47 Patient visited by Benny Garnett. mas 07:11 Patient visited by Mendez Jimenez RN. dwg 07:12 Attending Physician role handed off by Swapnil Myers MD sd1 07:12 Elaina Carrasco MD is Attending Physician. sd1 07:21 Patient visited by Reginald Shepard Security Aide. pjf 07:37 Patient visited by Reginald Shepard Security Aide. pjf 07:38 Patient visited by Mendez Jimenez RN. dwg 07:49 Patient visited by Reginald Shepard Security Aide. pjf 08:07 Patient visited by Reginald Shepard Security Aide. pjf 08:20 Patient visited by Reginald Shepard Security Aide. pjf 08:36 Psych Safety Check: Location: Psych Room. Visual Assessment: Restless, Agitated. pjf 08:38 Urine Culture Sent. dwg 08:38 UA Sent. dwg 08:41 Psych Safety Check: Location: Psych Room. Visual Assessment: Restless, Agitated. pjf 08:51 Patient visited by Mendez Jimenez RN. dwg 08:54 Patient visited by Reginald Shepard Security Aide. pjf 09:14 Patient visited by Reginald Shepard Security Aide. pjf 09:31 Patient visited by Reginald Shepard Security Aide. pjf 09:45 Psych Safety Check: Location: Psych Room. Visual Assessment: Cooperative. pjf 10:00 Patient visited by Reginald Shepard Security Aide. pjf 10:06 EKG-ADULT Returned. EDMS 10:10 Patient visited by Mendez Jimenez RN. dwg 10:15 Patient visited by Reginald Shepard Security Aide. pjf 10:23 Psych Safety Check: Location: Psych Room. Visual Assessment: Restless, Agitated. pjf 10:32 Patient visited by Reginald Shepard Security Aide. pjf 10:38 Shower given. pjf 10:44 Patient visited by Reginald Shepard Security Aide. pjf 10:59 Patient visited by Landon Finch PCA. jrd 11:14 Patient visited by Landon Finch PCA. jrd 11:16 Psych Safety Check: Location: Psych Room. Visual Assessment: Agitated, Confused, jrd Patient is speaking to herself and coming out of the room stating that she does not need to be evaluated. 11:22 Patient visited by Landon Finch PCA. jrd 11:29 Patient visited by Landon Finch PCA. jrd 11:30 Psych Safety Check: Location: Visual Assessment: Restless, Agitated, Uncooperative. jrd 11:45 Pt greeted and oriented to ED. Patient advised of names of staff involved in care, jrd location of call mccoy, wait times and NPO status. Psych Safety Check: Location: Psych Room. Visual Assessment: Restless, Agitated, Uncooperative. 12:09 Patient visited by Jazmin Rush RN. ms18 13:00 Psych Safety Check: Location: Psych Room. Visual Assessment: Restless, Agitated. nb2 13:07 Patient visited by Sangita Jhaveri. nb2 13:16 Patient visited by Sangita Jhaveri. nb2 13:16 Psych Safety Check: Location: Psych Room. Visual Assessment: Restless. nb2 13:33 Patient visited by Di Blankenship RN. ttb 14:25 No IV's were initiated during this patient's visit. No procedures done that require ttb assistance. 14:32 [facility] Legal paperwork was scanned into [employer] and attached to record. jfb 14:55 Primary Nurse role handed off by Amparo Ray LPN dsf Administered Medications: 13:14 Not Given (Patient Refused): LORazepam 2 mg PO once ms18 15:26 Not Given (Patient Refused): -Haloperidol Lactate 5 mg IM once dsf 15:26 Not Given (Patient Refused): diphenhydrAMINE 25 mg IM once dsf 15:26 Not Given (Patient Refused): LORazepam 2 mg IM once dsf Attachments: 09/20 14:32 [facility] Legal paperwork jfb Order Results: Lab Order: Acetaminophen Level; SPEC'M 09/19/16 14:29 Test: ACETAMINOPHEN LEVEL; Value: < 2.0; Range: 10.0-30.0; Abnormal: Below low normal; Units: UG/ML; Status: F Lab Order: Basic Metabolic Profile; SPEC'M 09/19/16 14:29 Test: GLUCOSE, FASTING; Value: 93; Range: 70-105; Units: MG/DL; Status: F Test: BLOOD UREA NITROGEN; Value: 18; Range: 7-18; Units: MG/DL; Status: F Test: CREATININE FOR GFR; Value: 0.88; Range: 0.55-1.02; Units: MG/DL; Status: F Test: GLOMERULAR FILTRATION RATE; Value: > 60.0; Range: >51; Status: F Test: SODIUM LEVEL; Value: 143; Range: 136-145; Units: MEQ/L; Status: F Test: POTASSIUM SERUM; Value: 4.1; Range: 3.5-5.1; Units: MEQ/L; Status: F Test: CHLORIDE LEVEL; Value: 108; Range: 98-107; Abnormal: Above high normal; Units: MEQ/L; Status: F Test: CARBON DIOXIDE LEVEL; Value: 27; Range: 21-32; Units: MEQ/L; Status: F Test: ANION GAP; Value: 8; Range: 8-16; Units: MEQ/L; Status: F Test: CALCIUM LEVEL; Value: 9.4; Range: 8.5-10.1; Units: MG/DL; Status: F Test Note: ; Units are mL/min/1.73 m2 Chronic Kidney Disease Staging per NKF: Stage I & II GFR >=60 Normal to Mildly Decreased Stage III GFR 30-59 Moderately Decreased Stage IV GFR 15-29 Severely Decreased Stage V GFR <15 Very Little GFR Left ESRD GFR <15 on VALUE ADVISOR Lab Order: Complete Blood Count; SPEC'M 09/19/16 14:29 Test: WHITE BLOOD COUNT; Value: 5.9; Range: 4.0-10.0; Units: K/mm3; Status: F Test: RED BLOOD COUNT; Value: 4.05; Range: 4.00-5.40; Units: M/mm3; Status: F Test: HEMOGLOBIN; Value: 13.7; Range: 12.0-16.0; Units: g/dl; Status: F Test: HEMATOCRIT; Value: 40.7; Range: 36.0-47.0; Units: %; Status: F Test: MEAN CORPUSCULAR VOLUME; Value: 100.5; Range: 80.0-96.0; Abnormal: Above high normal; Units: fl; Status: F Test: MEAN CORPUSCULAR HEMOGLOBIN; Value: 33.9; Range: 27.0-33.0; Abnormal: Above high normal; Units: pg; Status: F Test: MEAN CORPUSCULAR HGB CONC; Value: 33.7; Range: 32.0-36.5; Units: g/dl; Status: F Test: RED CELL DISTRIBUTION WIDTH; Value: 13.2; Range: 11.5-14.5; Units: %; Status: F Test: PLATELET COUNT, AUTOMATED; Value: 348; Range: 150-450; Units: k/mm3; Status: F Lab Order: Drug Eval Toxicology ED Only; SPEC'M 09/19/16 14:32 Test: AMPHETAMINES LEVEL URINE; Value: NEGATIVE; Range: NEGATIVE; Status: F Test: BARBITURATES URINE; Value: NEGATIVE; Range: NEGATIVE; Status: F Test: BENZODIAZEPINES URINE; Value: NEGATIVE; Range: NEGATIVE; Status: F Test: CANNABINOIDS URINE; Value: NEGATIVE; Range: NEGATIVE; Status: F Test: COCAINE METABOLITE URINE; Value: NEGATIVE; Range: NEGATIVE; Status: F Test: METHADONE URINE; Value: NEGATIVE; Range: NEGATIVE; Status: F Test: OPIATES URINE; Value: NEGATIVE; Range: NEGATIVE; Status: F Test: TRICYCLIC ANTIDEPRESS URINE; Value: POSITIVE; Range: NEGATIVE; Abnormal: Above high normal; Status: F Test Note: ; ALL PRESUMPTIVE POSITIVE FINDINGS ARE UNCONFIRMED NORMAL VALUES THRESHOLD IN NG/ML AMPHETAMINES 1000 METHAMPHETAMINES 1000 BARBITURATES 300 BENZODIAZEPINES 300 CANNABINOIDS (THC) 50 COCAINE METABOLITE 300 METHADONE 300 OPIATES 300 PHENCYCLIDINE 25 TRICYCLIC ANTIDEPRESSANTS 1000 RESULTS ARE FOR MEDICAL PURPOSES ONLY. ALL URINE SPECIMENS WILL BE SAVED FOR 3 DAYS. IF CONFIRMATION OF A PRESUMPTIVE POSTIVE SCREEN RESULT IS DESIRED, CALL CHEMISTRY ([phone]) AND REQUEST URINE TO BE SENT TO REFERENCE LAB. FOR A LIST OF CLOSELY RELATED COMPOUNDS PLEASE CALL THE LAB. Lab Order: Ethyl Alcohol (ethanol); SPEC'M 09/19/16 14:29 Test: ETHYL ALCOHOL (ETHANOL); Value: < 0.003; Range: 0.000-0.010; Units: %; Status: F Lab Order: Liver Profile; SPEC'M 09/19/16 14:29 Test: AST/SGOT; Value: 23; Range: 15-37; Units: U/L; Status: F Test: ALT/SGPT; Value: 47; Range: 12-78; Units: U/L; Status: F Test: ALKALINE PHOSPHATASE; Value: 84; Range: 45-117; Units: U/L; Status: F Test: BILIRUBIN,TOTAL; Value: 0.4; Range: 0.2-1.0; Units: MG/DL; Status: F Test: BILIRUBIN,DIRECT; Value: 0.1; Range: 0.0-0.2; Units: MG/DL; Status: F Test: TOTAL PROTEIN; Value: 6.7; Range: 6.4-8.2; Units: GM/DL; Status: F Test: ALBUMIN; Value: 4.2; Range: 3.2-5.2; Units: GM/DL; Status: F Test: ALBUMIN/GLOBULIN RATIO; Value: 1.68; Range: 1.00-1.93; Status: F Lab Order: Salicylate Level; SPEC'M 09/19/16 14:29 Test: SALICYLATE LEVEL; Value: 2.4; Range: 5.0-30.0; Abnormal: Below low normal; Units: MG/DL; Status: F Lab Order: Thyroid Stimulating Hormone; SPEC'M 09/19/16 14:29 Test: THYROID STIMULATING HORMONE; Value: 0.690; Range: 0.358-3.740; Units: uIU/ML; Status: F Lab Order: UA; SPEC'M 09/20/16 08:35 Test: APPEARANCE, URINE; Value: CLEAR; Range: CLEAR; Status: F Test: COLOR, URINE; Value: STRAW; Range: YELLOW; Status: F Test: PH,URINE; Value: 6.0; Range: 5.0-9.0; Units: UNITS; Status: F Test: SPECIFIC GRAVITY URINE AUTO; Value: 1.002; Range: 1.002-1.035; Status: F Test: PROTEIN, URINE AUTO; Value: NEGATIVE; Range: NEGATIVE; Units: mg/dL; Status: F Test: GLUCOSE, URINE (UA) AUTO; Value: NEGATIVE; Range: NEGATIVE; Units: mg/dL; Status: F Test: KETONE, URINE AUTO; Value: NEGATIVE; Range: NEGATIVE; Units: mg/dL; Status: F Test: UROBILINOGEN, URINE AUTO; Value: 0.2; Range: 0.0-2.0; Units: mg/dL; Status: F Test: BILIRUBIN, URINE AUTO; Value: NEGATIVE; Range: NEGATIVE; Status: F Test: NITRITE, URINE AUTO; Value: NEGATIVE; Range: NEGATIVE; Status: F Test: LEUKOCYTE ESTERASE, URINE AUTO; Value: TRACE; Range: NEGATIVE; Abnormal: Above high normal; Status: F Test: BLOOD, URINE BLOOD; Value: NEGATIVE; Range: NEGATIVE; Status: F Test: WBC, URINE AUTO; Value: 3; Range: 0-3; Units: /HPF; Status: F Test: RBC, URINE AUTO; Value: 0; Range: 0-3; Units: /HPF; Status: F Test: BACTERIA, URINE AUTO; Value: NEGATIVE; Range: NEGATIVE; Status: F Test: SQUAMOUS EPITHELIAL CELL UR AU; Value: 1; Range: 0-6; Units: /HPF; Status: F Test: HYALINE CAST, URINE AUTO; Value: 0; Range: 0-1; Units: /LPF; Status: F Outcome: 13:01 ER care complete, transfer ordered by Provider. sd1 14:25 Discharge Assessment: Patient awake and alert. patient administered narcotics - no. The ttb following High Risk Discharge criteria are identified: Yes, transfer . Transferred by EMS ground [facility] ambulance report to accompanying personnel Ernesto Salvador & Justine Colbert . Condition: stable. No special radiology studies were completed. Property given to EMS transport crew. 14:30 Patient left the ED. ttb 15:26 Patient left the ED. dsf Signatures: Dispatcher [employer] EDMS Elaina Carrasco MD MD sd1 Mendez Jimenez, RN RN dwTimmy Murcia, RN RN bcj Michael, Mayco, PSA PSA cl Stone, Qing, PSA PSA ms Devyn, Reginald, Security Aide Securpjf Cory,Amparo,DIRECTOR OF PRIMARY CARE DIRECTOR OF PRIMARY CARE me3 Yudi, Caroline, PSA PSA ml4 Yadira Aguilar Brian, MD MD br1 Montse Campuzano, PSA PSA jfb Dinora Lance, RN RN hs1 Benny Garnett Desiree,RN RN dsf Mynor, Zack Sanchezl1 Di Blankenship, RN RN ttb Jazmin Rush,RN RN ms18 Landon Finch, ORCHESTRA DIRECTOR ORCHESTRA DIRECTOR Dinesh Wetzel rn1 Kristan Pulido,RN RN nn1 Tamra Brown jp5 Sangita Jhaveri2 Corrections: (The following items were deleted from the chart) 09/19 16:44 16:21 Referral Information: Evaluation referral is generated by ms ms 16:56 16:28 Patient presents to Emergency Department with the following symptoms within the ms past 2 weeks: auditory hallucinations this worker ms 17:12 16:41 Pt greeted and oriented to ED. Patient advised of names of staff involved in pjf care, location of call m[place], wait times and NPO status. pjf 17:12 16:41 Accompanied by Law Enforcement, lpd - (9.41), pjf pjf 17:16 16:21 Referral Information: Evaluation referral is generated by a police agency: ms [place] [employer]. The patient was referred for evaluation because A slat pickler order was issued for pt. after an Adult Protective worker found her wandering outside of her apartment when worker went to her house for a visit. Upon going inside, AP worker found pot on stove with burner on and that pt. was disheveled and not taking care of self.. ms 17:16 16:28 Subjective: The patients chief complaint is Pt. answers "no" and "I don't know" ms to majority of questions asked. She did state that she was outside earlier today but did not elaborate why. Pt. does appear disheveled. She also appears to be responding to internal stimuli, mumbles frequently to self and stares off. She denies she is on any medications or goes to out-pt. services.. Delusions are Patient's mood is Auditory Hallucinations are suspected. Pt. last admission to this facility was 02/2014 ( several previous). She had dx of Schizoaffective disorder, bipolar type and Substance Abuse.She denies having any next of kin that she wants contacted ms MTDD
--- NOTE | 2016-09-20 15:27 | EDDOCDS ---
Physician Documentation [facility] Name: Maria Rosen Age: 56 yrs Sex: Female : 1960 Arrival Date: 09/19/2016 Time: 13:51 Bed OBSERVATION Private MD: Disposition: 09/20/16 13:01 Transfer ordered to [facility]. Diagnosis is Schizophrenia. - Reason for transfer: Higher level of care. - Accepting physician is Dr. Ward. - Condition is Stable. - Problem is an acute exacerbation. - Symptoms are unchanged. Historical: - Allergies: Tramadol HCl; Trazodone; - Home Meds: 1. none - PMHx: Schizophrenia; - PSHx: Unable to obtain; - Social history: Smoking status: Patient uses tobacco products, heavy tobacco smoker. No barriers to communication noted, The patient speaks fluent Greek, Speaks appropriately for age. - Family history: Not pertinent. - : The pt / caregiver states he / she is not on anticoagulants. Unable to Verify Home Med List with the patient / caregiver. Note unable to get answers about history. . - Exposure Risk Screening:: None identified. Vital Signs: 09/19 14:20 BP 144 / 86; Pulse 101; Resp 20; Temp 96.1(O); Pulse Ox 97% on R/A; jml1 20:29 BP 124 / 75; Pulse 80; Resp 18; Temp 97.1; Pulse Ox 96% ; Pain 0/10; mas 09/20 03:09 BP 120 / 70; Pulse 81; Resp 18; Temp 96.9(T); Pulse Ox 95% ; Pain 0/10; mas 07:37 BP 133 / 74; Pulse 74; Resp 18; Temp 97.2(T); Pulse Ox 97% on R/A; Pain 0/10; dwg 10:09 BP 119 / 78; Pulse 80; Resp 20; Temp 96.9(T); Pulse Ox 98% on R/A; dwg 14:25 BP 116 / 63; Pulse 70; Resp 18; Temp 97.8; Pulse Ox 97% on R/A; Pain 0/10; ttb MDM: 09/19 14:05 Consult PFS/PSA/Cloth Booker ordered. sd1 14:05 Consult PFS/PSA/Cloth Booker: Patient's case requires discussion with on-call sd1 Psychiatrist ordered. 14:05 PSA/PFS to call Nursing Elevated Guard, to enter patient data on [place] Safe [place] if patient sd1 involuntarily admitted or transferred for SI or HI ordered. 14:05 Confirm accurate psychiatric medication list and times of last dosage ordered. sd1 14:05 Detain Pt Until Medically/PFS Cleared ordered. sd1 14:05 Acetaminophen Level Ordered. EDMS 14:05 Basic Metabolic Profile Ordered. EDMS 14:05 Complete Blood Count Ordered. EDMS 14:05 Drug Eval Toxicology ED Only Ordered. EDMS 14:05 Ethyl Alcohol (ethanol) Ordered. EDMS 14:06 Liver Profile Ordered. EDMS 14:06 Salicylate Level Ordered. EDMS 14:06 Thyroid Stimulating Hormone Ordered. EDMS 15:59 Financial registration complete. zo 16:12 Consult PFS/PSA/Cloth Booker complete. ms 16:12 Consult PFS/PSA/Cloth Booker: Patient's case requires discussion with on-call ms Psychiatrist complete. 16:12 PSA/PFS to call Nursing Elevated Guard, to enter patient data [place] Safe [place] if patient ms involuntarily admitted or transferred for SI or HI complete. 16:45 REGULAR DIET PLASTIC CUEVAS+DIET ordered. EDMS 18:36 [facility] Payment Agreement was scanned into [employer] and attached to record. zo 18:53 ECG WITH READING ER PHYS+CARDIAG ordered. EDMS 20:14 Acetaminophen Level Reviewed. br1 20:14 Basic Metabolic Profile Reviewed. br1 20:14 Complete Blood Count Reviewed. br1 20:14 Drug Eval Toxicology ED Only Reviewed. br1 20:14 Salicylate Level Reviewed. br1 20:14 Ethyl Alcohol (ethanol) Reviewed. br1 20:14 Liver Profile Reviewed. br1 20:14 Thyroid Stimulating Hormone Reviewed. br1 20:14 Consult PFS/PSA/Socail Worker: Cleared medically for eval ordered. br1 20:23 Consult PFS/PSA/Socail Worker: Cleared medically for eval complete. cl 09/20 04:18 REGULAR DIET PLASTIC CUEVAS+DIET ordered. EDMS 07:41 UA Ordered. EDMS 07:43 Urine Culture Ordered. EDMS 11:16 REGULAR DIET PLASTIC CUEVAS+DIET ordered. EDMS 11:33 LORazepam 2 mg PO once ordered. sd1 11:33 UA Reviewed. sd1 14:32 [facility] Legal paperwork was scanned into [employer] and attached to record. jfb 15:00 -Haloperidol Lactate 5 mg IM once ordered. sd1 15:00 diphenhydrAMINE 25 mg IM once ordered. sd1 15:00 LORazepam 2 mg IM once ordered. sd1 15:01 Restraints, Adult: Chemical - Meds as ordered (poses imminent danger of interfering sd1 with medical interventions). May use manual restraints to ensure safe admin. of meds. Pt. monitoring for min. of 2 hrs per RN policy. ordered. 15:03 ED course: patient became agitated when attempting to place on stretcher to transfer sd1 became belligerent swearing at staff threatening refusing to go attempted to calm patient and explain situation patient refused to cooperate required sedation. The patient poses imminent danger of interfering with medical interventions, The patient requires chemical restraints. Administered Medications: 13:14 Not Given (Patient Refused): LORazepam 2 mg PO once ms18 15:26 Not Given (Patient Refused): -Haloperidol Lactate 5 mg IM once dsf 15:26 Not Given (Patient Refused): diphenhydrAMINE 25 mg IM once dsf 15:26 Not Given (Patient Refused): LORazepam 2 mg IM once dsf Signatures: Dispatcher [employer] EDMS Elaina Carrasco MD MD sd1 Timmy Sawant, RN RN bcj Mayco Rodriguez, PSA PSA shala Reynoso, Qing, PSA PSA ms Jeff, Swapnil Camacho MD MD br1 Montse Campuzano, PSA PSA jfb Dinora Lance RN RN hs1 Neetu Pollack RN RN dsf Di Blankenship RN RN ttb Jazmin Rush RN ms18 The chart was reviewed and I authenticate all verbal orders and agree with the evaluation and treatment provided.Attachments: 09/19 18:36 [facility] [place] [facility]
--- NOTE | 2016-09-22 16:28 | EDDOCDS ---
Nurse's Notes [facility] Name: Maria Rosen Age: 56 yrs Sex: Female : 1960 Arrival Date: 09/19/2016 Time: 13:51 Bed OBSERVATION Private MD: Diagnosis: Schizophrenia Presentation: 09/19 14:13 Presenting complaint: Patient states: the police brought me in, I just have had a bad hs1 day. Mental Health Triage Level: Level 2: The patient was brought to the ED for evaluation because of a legal pickup order. Adult Sepsis Screening: The patient does not have new or worsening altered mentation. Patient's respiratory rate is less than 22. Systolic blood pressure is greater than 100. Patient has a qSOFA score of 0- Negative Sepsis Screen. Suicide/Homicide risk assessment- Patient denies SI and HI but presents with another emotional, behavioral or other mental health complaint. The patient reports that he/she has not been admitted to an inpatient mental health facility in the last 30 days. The patient reports that he/she has a recent or current history of substance abuse. The patient reports that he/she has no prior history of suicide attempt and/or organized plan. The patient reports that he/she has experienced a significant life altering event in the last 30 days. The patient reports that he/she lacks adequate social support. The patient reports he/she has no significant chronic medical condition(s). Status: Patient is not a electrotype servicer or dependent. Transition of care: patient was not received from another setting of care. 14:13 Acuity: NETO Level 3 hs1 14:13 Method Of Arrival: Police Car hs1 14:23 Presenting complaint: police states unsafe living arrangements at home. Patient was hs1 found running around outside. Patient had unattended boiling water pots on stove and has been lacking self care. Patient has been noted to be decompensating. HX of bipolar and schizoaffective disorder. Triage Assessment: 14:13 General: Appears unkempt, Behavior is flat. Pain: Denies pain. HIV screening NA for hs1 this visit Offered previously. Respiratory: Airway is patent Respiratory effort is even, unlabored, Respiratory pattern is regular, symmetrical. Historical: - Allergies: Tramadol HCl; Trazodone; - Home Meds: 1. none - PMHx: Schizophrenia; - PSHx: Unable to obtain; - Social history: Smoking status: Patient uses tobacco products, heavy tobacco smoker. No barriers to communication noted, The patient speaks fluent Venezuelan, Speaks appropriately for age. - Family history: Not pertinent. - : The pt / caregiver states he / she is not on anticoagulants. Unable to Verify Home Med List with the patient / caregiver. Note unable to get answers about history. . - Exposure Risk Screening:: None identified. Screenin:59 Screening information is obtained from the patient. Fall risk: No risks identified. me3 Assistance ADL's: requires no assistance with activities of daily living. Abuse/DV Screen: The patient / caregiver reports he/she is: not in a situation that causes fear, pain or injury. Nutritional screening: No deficits noted. Advance Directives: Currently, there is no health care proxy. home support is inadequate. Assessment: 15:15 General: Appears in no apparent distress, comfortable, Behavior is inappropriate for me3 age, pt mumbling to herself. Respiratory: No deficits noted. Airway is patent Respiratory effort is even, unlabored. 16:20 General: Appears in no apparent distress, comfortable, Behavior is cooperative, me3 inappropriate for age, pt in and out of room needing constant redirection. Respiratory: No deficits noted. Airway is patent Respiratory effort is even, unlabored. 17:15 General: Appears unkempt, Behavior is cooperative, inappropriate for age, pt needs much me3 redirection to stay in room. Respiratory: No deficits noted. Airway is patent Respiratory effort is even, unlabored. 18:20 General: Appears in no apparent distress, comfortable, Behavior is cooperative. me3 Respiratory: No deficits noted. Airway is patent Respiratory effort is even, unlabored. 19:55 General: Appears unkempt, Behavior is cooperative. Pain: Denies pain. Derm: Skin is bcj pink, warm & dry. 21:39 General: Appears in no apparent distress, comfortable, Behavior is cooperative. Pain: bcj Denies pain. Derm: Skin is pink, warm & dry. 22:41 General: Appears in no apparent distress, comfortable, Behavior is cooperative. Pain: bcj Denies pain. Derm: Skin is pink, warm & dry. 09/20 00:43 General: Appears in no apparent distress, comfortable, Behavior is cooperative. Pain: bcj Denies pain. Derm: Skin is pink, warm & dry. 01:05 General: Appears in no apparent distress, comfortable, Behavior is cooperative. nn1 Neurological: Level of Consciousness is awake. Respiratory: Airway is patent Respiratory effort is even, unlabored. Derm: Skin is pink, warm & dry. 02:15 General: Patient watching movie at this time. . Respiratory: No deficits noted. Derm: nn1 Skin is pink, warm & dry. 02:53 Reassessment: Patient appears in no apparent distress at this time. General: Patient nn1 continues to watch movie, cooperative at this time. . 03:34 General: Patient continues to wander out of room, patient continues to be redirected nn1 back into room. Patient given decaf coffee, explained to patient why she could not leave [facility] area to smoke. Patient has movie playing in room. . 05:07 General: Appears in no apparent distress, to be sleeping. Behavior is quiet. nn1 Respiratory: No deficits noted. Derm: Skin is pink, warm & dry. 05:44 General: Behavior is anxious, Patient pacing through the hallway, has to be redirected nn1 constantly to return to room. Patient continues to state how she does not want to be here and wants to go home or go outside to smoke. Patient declined nicotine patch. . 07:09 General: Report received from Linh Pulido RN, patient awake and alert, pacing in room, [facility] requesting to go home. Denies feeling suicidal, . 07:36 General: Awake and alert, cooperative, ate all of breakfast tray, continues pacing in [facility] room, VSS, denies feeling suicidal.. 08:49 General: Appears in no apparent distress, Behavior is anxious. General: Pacing in room, [facility] denies feeling suicidal, requesting to go home. Is re-directable . Pain: Denies pain. Neurological: Level of Consciousness is awake, alert, Oriented to person, place. Respiratory: Airway is patent Respiratory effort is even, unlabored, Respiratory pattern is regular, symmetrical. 10:08 General: Appears in no apparent distress, Behavior is cooperative. General: Pacing in [facility] room, cooperative, talking with family on phone.. Pain: Denies pain. Neurological: Level of Consciousness is awake, alert, Oriented to person, place. Respiratory: Airway is patent Respiratory effort is even, unlabored, Respiratory pattern is regular, symmetrical. 11:13 General: Appears in no apparent distress, comfortable, Behavior is anxious, ms18 cooperative, inappropriate for age, Pt continues to come out of her room every few mins asking for various items. Will continue to monitor pt. Neurological: Level of Consciousness is awake, alert. Respiratory: No deficits noted. Derm: Skin is pink, warm & dry. 12:09 General: Pt refusing to take this medication. Pt states that she cannot take it and ms18 keep talking to herself. Pt continues to walk out of her room and ask for a phone. Pt redirected into her room and asked to take her medication. Pt continues to refuse to take it and states that she cannot take it. Respiratory: No deficits noted. Derm: Skin is pink, warm & dry. 13:32 General: report received from MARY Wu to continue care until pt transferred to ttb [facility]. Report stated to be given to RN already. . 14:25 General: Appears in no apparent distress, comfortable, Behavior is inappropriate for ttb age, nonviolent, however not completely cooperative at this time. . General: report given to EMS crew. Neurological: Level of Consciousness is awake, alert. Respiratory: Airway is patent Respiratory effort is even, unlabored. GI: Denies nausea, vomiting. 15:30 General: pt unhappy about being transferred. Pt eventually got onto stretcher with EMS. ttb Report/Update given to MARY Kowalski at [facility] about pt mentality at this time.. Mental Health Eval: 09/19 16:21 Mental health consult is initiated at 16:00. Status: The patient is not a ms electrotype servicer or dependent. [facility] Behavioral Health: The patient is not an established patient of [facility] Behavioral Health. Referral Information: Evaluation referral is generated by a police agency: [employer] The patient was referred for evaluation because A order picker order was issued for pt. after an Adult Protective worker found her wandering outside of her apartment when worker went to her house for a visit. Upon going inside, AP worker found pot on stove with burner on and that pt. was disheveled and not taking care of self, has not bathed in quite some time, paranoia was also a concern. 16:28 Subjective: The patients chief complaint is Pt. answers "no" and "I don't know" to ms majority of questions asked. She did state that she was outside earlier today but did not elaborate why. Pt. does appear disheveled. She also appears to be responding to internal stimuli, mumbles frequently to self and stares off. She denies she is on any medications or goes to out-pt. services.. Delusions are paranoid, Patient's mood is anxious, Auditory Hallucinations are suspected. Pt. last admission to this facility was 02/2014 ( several previous). She had dx of Schizoaffective disorder, bipolar type and Substance Abuse.She denies having any next of kin that she wants contacted. Mental Health history: Bipolar Disorder, Schizoaffective Disorder, Bipolar type. Mental Health Admissions: [facility] 02/2014 and previous Current Outpatient Mental Health Services: Unable to Obtain. Current living environment is The patient currently lives alone. Patient presents to Emergency Department with the following symptoms within the past 2 weeks: auditory hallucinations this worker poor concentration, psychosis. 16:47 Substance abuse: Pt denies. Mental status exam: Patients appearance is disheveled ms unkempt, Patient's behavior is superficially cooperative Speech is normal. Affect is appropriate. Mood is anxious. Auditory Hallucinations are suspected. Appetite is poor. Memory is fair. Energy level is normal. Thought process is intact. Cognitive level is oriented to person, place, time and situation Patient's insight is poor. Judgement is fair. Rapport with interviewer is guarded. Suicidal Ideation is denied. Homicidal ideation is denied. 17:13 Disposition: Medically cleared for disposition by Elaina Carrasco MD Psychiatric ms Consult is performed by phone with Dr Micha Lynch MD. [facility] Admission Criteria: The patient displays symptoms of severe psychiatric disorder resulting in disordered behavior and significant interference with his / her ability to maintain self care. Hallucinations. The patient's care requires a multi-modal treatment plan under close supervision and coordination due to the complexity and severity of the patient's symptoms. Legal Status: Patient's legal status will be [facility] admission: . [place] because the patient does not display any suicidal or homicidal ideations and does not pose a risk to self or others. DSM-V Differential Diagnosis: Schizoaffective Disorder (F25.0) bipolar type (F25.0). 18:54 Narrative: [facility] is currently at capacity. Chart faxed to [facility] for review, however ml4 MD is unable to review until tomorrow morning. 22:24 Narrative: Spoke to Hattie \\Bjorn\\ [facility] who confirmed receipt, however MD will review in the ml4 am. States to contact [facility] in the am for possible acceptance. 23:43 Narrative: EKG completed, faxed as requested... cl Vital Signs: 14:20 BP 144 / 86; Pulse 101; Resp 20; Temp 96.1(O); Pulse Ox 97% on R/A; jml1 20:29 BP 124 / 75; Pulse 80; Resp 18; Temp 97.1; Pulse Ox 96% ; Pain 0/10; mas 02/22 03:09 BP 120 / 70; Pulse 81; Resp 18; Temp 96.9(T); Pulse Ox 95% ; Pain 0/10; mas 07:37 BP 133 / 74; Pulse 74; Resp 18; Temp 97.2(T); Pulse Ox 97% on R/A; Pain 0/10; dwg 10:09 BP 119 / 78; Pulse 80; Resp 20; Temp 96.9(T); Pulse Ox 98% on R/A; dwg 14:25 BP 116 / 63; Pulse 70; Resp 18; Temp 97.8; Pulse Ox 97% on R/A; Pain 0/10; ttb Vitals: 09/19 16:59 Log In time N/A- police car arrival. ar3 ED Course: 13:53 Patient visited by Tamra Brown. jp5 13:53 Patient moved to Waiting 5 14:03 Patient moved to [facility] pjf 14:14 Psych Safety Check: Location: Psych Room. Visual Assessment: Agitated, Uncooperative. pjf 14:14 Triage Initiated hs1 14:15 Pt greeted and oriented to ED. Patient advised of names of staff involved in care, pjf location of call mccoy, wait times and NPO status. Accompanied by Law Enforcement, adrian - (9.41), Patient has correct armband on for positive identification. Placed in psych safe attire. Bed in low position. Call light in reach. Side rails up X 1. Security observing. 14:15 Property removed, secured in belongings bag- Placed in locker #1. Door closed. Noise pjf minimized. Visitors limited. Report received from blood bank technician - psych, triage level #2, ams, uncooperative \\T\\ this time. The patient / caregiver is instructed regarding the plan of care and ED course. 14:21 Patient visited by Zack Wells. jml1 14:30 Psych Safety Check: Location: Psych Room. Visual Assessment: Cooperative, Confused. pjf 14:33 Amparo Ray LPN is Primary Nurse. me3 14:33 Acetaminophen Level Sent. me3 14:33 Basic Metabolic Profile Sent. me3 14:33 Complete Blood Count Sent. me3 14:33 Drug Eval Toxicology ED Only Sent. me3 14:33 Ethyl Alcohol (ethanol) Sent. me3 14:33 Liver Profile Sent. me3 14:33 Salicylate Level Sent. me3 14:33 Thyroid Stimulating Hormone Sent. me3 14:35 Patient visited by Reginald Shepard Security Aide. pjf 14:39 Elaina Carrasco MD is Attending Physician. sd1 14:58 Patient visited by Reginald Shepard Security Aide. pjf 15:08 Patient visited by Elaina Carrasco MD. sd1 15:58 Patient visited by Reginald Shepard Security Aide. pjf 16:39 Patient visited by Reginald Shepard Security Aide. pjf 17:10 Patient visited by Reginald Shepard Security Aide. pjf 17:12 psych. safety checks completed at approx. 15 min. intervals from 14:30 to the time of pjf this entry. pt. remains cooperative. 17:17 Patient visited by Reginald Shepard Security Aide. pjf 17:31 Patient visited by Reginald Shepard Security Aide. pjf 18:05 Patient visited by Amparo Ray LPN. me3 18:15 Patient visited by Reginald Shepard Security Aide. pjf 18:30 Patient visited by Reginald Shepard Security Aide. pjf 18:36 [facility] Payment Agreement was scanned into [employer] and attached to record. zo 19:06 Patient visited by Reginald Shepard Security Aide. pjf 19:24 Patient visited by Reginald Shepard Security Aide. pjf 19:34 Patient visited by Timmy Sawant RN. bcj 19:46 Patient visited by Benny Garnett. mas 19:55 No apparent distress. Resting quietly. bcj 19:55 Security observing. bcj 19:55 Labs drawn. (by ED staff). Sent per order to lab. Urine collected. Clean catch j specimen. Urine specimen sent to lab. 19:56 Patient visited by Timmy Sawant RN. bcj 20:00 Patient visited by Benny Garnett. mas 20:14 Attending Physician role handed off by Elaina Carrasco MD br1 20:14 Swapnil Myers MD is Attending Physician. br1 20:15 Patient moved to OBSERVATION br1 20:16 Patient visited by Benny Garnett. mas 20:29 Patient visited by Benny Garnett. mas 20:41 Patient visited by Benny Garnett. mas 21:04 Patient visited by Benny Garnett. mas 21:19 Patient visited by Benny Garnett. mas 21:30 Patient visited by Benny Garnett. mas 21:39 Resting quietly. Awaiting disposition. bcj 21:39 Security observing. bcj 21:40 Patient visited by Timmy Sawant RN. bcj 22:01 Patient visited by Benny Garnett. mas 22:32 Patient visited by Benny Garnett. mas 22:41 Resting quietly. Awaiting disposition. bcj 22:41 Security observing. bcj 22:42 Patient visited by Timmy Sawant RN. bcj 22:45 Patient visited by Benny Garnett. mas 22:45 Patient visited by Timmy Sawant RN. bcj 23:02 Patient visited by Benny Garnett. mas 23:15 Patient visited by Benny Garnett. mas 23:30 Patient visited by Benny Garnett. mas 23:36 Patient visited by Reyna Lowe. ajs 23:36 EKG done. (by ED staff). Reviewed by Swapnil Myers MD. ajs 23:49 Patient visited by Benny Garnett. mas 09/20 00:43 No apparent distress. Pt. is pacing. Awaiting disposition. bcj 00:43 Security observing. bcj 00:44 Patient visited by Timmy Sawant RN. bcj 01:17 Patient visited by Benny Garnett. mas 01:32 Patient visited by Benny Garnett. mas 01:47 Patient visited by Benny Garnett. mas 02:02 Patient visited by Benny Garnett. mas 02:18 Patient visited by Benny Garnett. mas 02:32 Patient visited by Benny Garnett. mas 02:46 Patient visited by Benny Garnett. mas 03:01 Patient visited by Benny Garnett. mas 03:15 Patient visited by Benny Garnett. mas 03:24 Patient visited by Benny Garnett. mas 03:39 Patient visited by Benny Garnett. mas 03:50 Patient visited by Benny Garnett. mas 04:00 Patient visited by Benny Garnett. mas 04:15 Patient visited by Benny Garnett. mas 04:37 Patient visited by Benny Garnett. mas 04:55 Patient visited by Benny Garnett. mas 05:00 Patient visited by Benny Garnett. mas 05:19 Patient visited by Dinesh Arias. rn1 05:39 Patient visited by Benny Garnett. mas 05:45 Patient visited by Benny Garnett. mas 06:00 Patient visited by Benny Garnett. mas 06:15 Patient visited by Benny Garnett. mas 06:32 Patient visited by Benny Garnett. mas 06:45 Patient visited by Benny Garnett. mas 06:47 Patient visited by Benny Garnett. mas 07:11 Patient visited by Mendez Jimenez RN. dwg 07:12 Attending Physician role handed off by Swapnil Myers MD sd1 07:12 Elaina Carrasco MD is Attending Physician. sd1 07:21 Patient visited by Reginald Shepard Security Aide. pjf 07:37 Patient visited by Reginald Shepard Security Aide. pjf 07:38 Patient visited by Mendez Jimenez RN. dwg 07:49 Patient visited by Reginald Shepard Security Aide. pjf 08:07 Patient visited by Reginald Shepard Security Aidroseanne. pjf 08:20 Patient visited by Reginald Shepard Security Aidroseanne. pjf 08:36 Psych Safety Check: Location: Psych Room. Visual Assessment: Restless, Agitated. pjf 08:38 Urine Culture Sent. dwg 08:38 UA Sent. dwg 08:41 Psych Safety Check: Location: Psych Room. Visual Assessment: Restless, Agitated. pjf 08:51 Patient visited by Mendez Jimenez RN. dwg 08:54 Patient visited by Reginald Shepard Security Aide. pjf 09:14 Patient visited by Reginald Shepard Security Aide. pjf 09:31 Patient visited by Reginald Shepard Security Aide. pjf 09:45 Psych Safety Check: Location: Psych Room. Visual Assessment: Cooperative. pjf 10:00 Patient visited by Reginald Shepard Security Aide. pjf 10:06 EKG-ADULT Returned. EDMS 10:10 Patient visited by Mendez Jimenez RN. dwg 10:15 Patient visited by Reginald Shepard Security Aide. pjf 10:23 Psych Safety Check: Location: Psych Room. Visual Assessment: Restless, Agitated. pjf 10:32 Patient visited by Reginald Shepard Security Aide. pjf 10:38 Shower given. pjf 10:44 Patient visited by Reginald Shepard Security Aide. pjf 10:59 Patient visited by Landon Finch PCA. jrd 11:14 Patient visited by Landon Finch PCA. jrd 11:16 Psych Safety Check: Location: Psych Room. Visual Assessment: Agitated, Confused, jrd Patient is speaking to herself and coming out of the room stating that she does not need to be evaluated. 11:22 Patient visited by Landon Finch PCA. jrd 11:29 Patient visited by Landon Finch PCA. jrd 11:30 Psych Safety Check: Location: Visual Assessment: Restless, Agitated, Uncooperative. jrd 11:45 Pt greeted and oriented to ED. Patient advised of names of staff involved in care, jrd location of call mccoy, wait times and NPO status. Psych Safety Check: Location: Psych Room. Visual Assessment: Restless, Agitated, Uncooperative. 12:09 Patient visited by Jazmin Rush RN. ms18 13:00 Psych Safety Check: Location: Psych Room. Visual Assessment: Restless, Agitated. nb2 13:07 Patient visited by Sangita Jhaveri. nb2 13:16 Patient visited by Sangita Jhaveri. nb2 13:16 Psych Safety Check: Location: Psych Room. Visual Assessment: Restless. nb2 13:33 Patient visited by Di Blankenship RN. ttb 14:25 No IV's were initiated during this patient's visit. No procedures done that require ttb assistance. 14:32 [facility] Legal paperwork was scanned into [employer] and attached to record. jfb 14:55 Primary Nurse role handed off by Amparo Ray LPN dsf 15:37 Patient visited by Di Blankenship RN. ttb 09/22 08:49 T-Sheet-- Draft Copy was scanned into [employer] and attached to record. lg 08:50 ECG/EKG was scanned into [employer] and attached to record. lg Administered Medications: 09/20 13:14 Not Given (Patient Refused): LORazepam 2 mg PO once ms18 15:26 Not Given (Patient Refused): -Haloperidol Lactate 5 mg IM once dsf 15:26 Not Given (Patient Refused): diphenhydrAMINE 25 mg IM once dsf 15:26 Not Given (Patient Refused): LORazepam 2 mg IM once dsf Attachments: 09/20 14:32 E Legal paperwork jfb Order Results: Lab Order: Acetaminophen Level; SPEC'M 09/19/16 14:29 Test: ACETAMINOPHEN LEVEL; Value: < 2.0; Range: 10.0-30.0; Abnormal: Below low normal; Units: UG/ML; Status: F Lab Order: Basic Metabolic Profile; SPEC'M 09/19/16 14:29 Test: GLUCOSE, FASTING; Value: 93; Range: 70-105; Units: MG/DL; Status: F Test: BLOOD UREA NITROGEN; Value: 18; Range: 7-18; Units: MG/DL; Status: F Test: CREATININE FOR GFR; Value: 0.88; Range: 0.55-1.02; Units: MG/DL; Status: F Test: GLOMERULAR FILTRATION RATE; Value: > 60.0; Range: >51; Status: F Test: SODIUM LEVEL; Value: 143; Range: 136-145; Units: MEQ/L; Status: F Test: POTASSIUM SERUM; Value: 4.1; Range: 3.5-5.1; Units: MEQ/L; Status: F Test: CHLORIDE LEVEL; Value: 108; Range: 98-107; Abnormal: Above high normal; Units: MEQ/L; Status: F Test: CARBON DIOXIDE LEVEL; Value: 27; Range: 21-32; Units: MEQ/L; Status: F Test: ANION GAP; Value: 8; Range: 8-16; Units: MEQ/L; Status: F Test: CALCIUM LEVEL; Value: 9.4; Range: 8.5-10.1; Units: MG/DL; Status: F Test Note: ; Units are mL/min/1.73 m2 Chronic Kidney Disease Staging per NKF: Stage I & II GFR >=60 Normal to Mildly Decreased Stage III GFR 30-59 Moderately Decreased Stage IV GFR 15-29 Severely Decreased Stage V GFR <15 Very Little GFR Left ESRD GFR <15 on CYTOMETRY TECHNOLOGIST Lab Order: Complete Blood Count; [facility] 09/19/16 14:29 Test: WHITE BLOOD COUNT; Value: 5.9; Range: 4.0-10.0; Units: K/mm3; Status: F Test: RED BLOOD COUNT; Value: 4.05; Range: 4.00-5.40; Units: M/mm3; Status: F Test: HEMOGLOBIN; Value: 13.7; Range: 12.0-16.0; Units: g/dl; Status: F Test: HEMATOCRIT; Value: 40.7; Range: 36.0-47.0; Units: %; Status: F Test: MEAN CORPUSCULAR VOLUME; Value: 100.5; Range: 80.0-96.0; Abnormal: Above high normal; Units: fl; Status: F Test: MEAN CORPUSCULAR HEMOGLOBIN; Value: 33.9; Range: 27.0-33.0; Abnormal: Above high normal; Units: pg; Status: F Test: MEAN CORPUSCULAR HGB CONC; Value: 33.7; Range: 32.0-36.5; Units: g/dl; Status: F Test: RED CELL DISTRIBUTION WIDTH; Value: 13.2; Range: 11.5-14.5; Units: %; Status: F Test: PLATELET COUNT, AUTOMATED; Value: 348; Range: 150-450; Units: k/mm3; Status: F Lab Order: Drug Eval Toxicology ED Only; SPEC'M 09/19/16 14:32 Test: AMPHETAMINES LEVEL URINE; Value: NEGATIVE; Range: NEGATIVE; Status: F Test: BARBITURATES URINE; Value: NEGATIVE; Range: NEGATIVE; Status: F Test: BENZODIAZEPINES URINE; Value: NEGATIVE; Range: NEGATIVE; Status: F Test: CANNABINOIDS URINE; Value: NEGATIVE; Range: NEGATIVE; Status: F Test: COCAINE METABOLITE URINE; Value: NEGATIVE; Range: NEGATIVE; Status: F Test: METHADONE URINE; Value: NEGATIVE; Range: NEGATIVE; Status: F Test: OPIATES URINE; Value: NEGATIVE; Range: NEGATIVE; Status: F Test: TRICYCLIC ANTIDEPRESS URINE; Value: POSITIVE; Range: NEGATIVE; Abnormal: Above high normal; Status: F Test Note: ; ALL PRESUMPTIVE POSITIVE FINDINGS ARE UNCONFIRMED NORMAL VALUES THRESHOLD IN NG/ML AMPHETAMINES 1000 METHAMPHETAMINES 1000 BARBITURATES 300 BENZODIAZEPINES 300 CANNABINOIDS (THC) 50 COCAINE METABOLITE 300 METHADONE 300 OPIATES 300 PHENCYCLIDINE 25 TRICYCLIC ANTIDEPRESSANTS 1000 RESULTS ARE FOR MEDICAL PURPOSES ONLY. ALL URINE SPECIMENS WILL BE SAVED FOR 3 DAYS. IF CONFIRMATION OF A PRESUMPTIVE POSTIVE SCREEN RESULT IS DESIRED, CALL CHEMISTRY ([phone]) AND REQUEST URINE TO BE SENT TO REFERENCE LAB. FOR A LIST OF CLOSELY RELATED COMPOUNDS PLEASE CALL THE LAB. Lab Order: Ethyl Alcohol (ethanol); SPEC'M 09/19/16 14:29 Test: ETHYL ALCOHOL (ETHANOL); Value: < 0.003; Range: 0.000-0.010; Units: %; Status: F Lab Order: Liver Profile; SPEC'M 09/19/16 14:29 Test: AST/SGOT; Value: 23; Range: 15-37; Units: U/L; Status: F Test: ALT/SGPT; Value: 47; Range: 12-78; Units: U/L; Status: F Test: ALKALINE PHOSPHATASE; Value: 84; Range: 45-117; Units: U/L; Status: F Test: BILIRUBIN,TOTAL; Value: 0.4; Range: 0.2-1.0; Units: MG/DL; Status: F Test: BILIRUBIN,DIRECT; Value: 0.1; Range: 0.0-0.2; Units: MG/DL; Status: F Test: TOTAL PROTEIN; Value: 6.7; Range: 6.4-8.2; Units: GM/DL; Status: F Test: ALBUMIN; Value: 4.2; Range: 3.2-5.2; Units: GM/DL; Status: F Test: ALBUMIN/GLOBULIN RATIO; Value: 1.68; Range: 1.00-1.93; Status: F Lab Order: Salicylate Level; SPEC' 09/19/16 14:29 Test: SALICYLATE LEVEL; Value: 2.4; Range: 5.0-30.0; Abnormal: Below low normal; Units: MG/DL; Status: F Lab Order: Thyroid Stimulating Hormone; SPEC' 09/19/16 14:29 Test: THYROID STIMULATING HORMONE; Value: 0.690; Range: 0.358-3.740; Units: uIU/ML; Status: F Lab Order: UA; [facility]' 09/20/16 08:35 Test: APPEARANCE, URINE; Value: CLEAR; Range: CLEAR; Status: F Test: COLOR, URINE; Value: STRAW; Range: YELLOW; Status: F Test: PH,URINE; Value: 6.0; Range: 5.0-9.0; Units: UNITS; Status: F Test: SPECIFIC GRAVITY URINE AUTO; Value: 1.002; Range: 1.002-1.035; Status: F Test: PROTEIN, URINE AUTO; Value: NEGATIVE; Range: NEGATIVE; Units: mg/dL; Status: F Test: GLUCOSE, URINE (UA) AUTO; Value: NEGATIVE; Range: NEGATIVE; Units: mg/dL; Status: F Test: KETONE, URINE AUTO; Value: NEGATIVE; Range: NEGATIVE; Units: mg/dL; Status: F Test: UROBILINOGEN, URINE AUTO; Value: 0.2; Range: 0.0-2.0; Units: mg/dL; Status: F Test: BILIRUBIN, URINE AUTO; Value: NEGATIVE; Range: NEGATIVE; Status: F Test: NITRITE, URINE AUTO; Value: NEGATIVE; Range: NEGATIVE; Status: F Test: LEUKOCYTE ESTERASE, URINE AUTO; Value: TRACE; Range: NEGATIVE; Abnormal: Above high normal; Status: F Test: BLOOD, URINE BLOOD; Value: NEGATIVE; Range: NEGATIVE; Status: F Test: WBC, URINE AUTO; Value: 3; Range: 0-3; Units: /HPF; Status: F Test: RBC, URINE AUTO; Value: 0; Range: 0-3; Units: /HPF; Status: F Test: BACTERIA, URINE AUTO; Value: NEGATIVE; Range: NEGATIVE; Status: F Test: SQUAMOUS EPITHELIAL CELL UR AU; Value: 1; Range: 0-6; Units: /HPF; Status: F Test: HYALINE CAST, URINE AUTO; Value: 0; Range: 0-1; Units: /LPF; Status: F Lab Order: Urine Culture; SPEC'M 09/20/16 08:35 Test: URINE CULTURE; Value: <EXTERNAL COMMENT eCWMed> FULL REPORT IN LAB NOTES (eCW and Medent).; Status: F Test: URINE CULTURE; Value: URINE CULTURE RESULT SPECIMEN APPEARS CONTAMINATED; Status: F Outcome: 09/20 13:01 ER care complete, transfer ordered by Provider. sd1 14:25 Discharge Assessment: Patient awake and alert. patient administered narcotics - no. The ttb following High Risk Discharge criteria are identified: Yes, transfer . Transferred by EMS ground [facility] [place] [place] ambulance report to accompanying personnel Ernesto Salvador & Justine Colbert . Condition: stable. No special radiology studies were completed. Property given to EMS transport crew. 14:30 Patient left the ED. ttb 15:26 Patient left the ED. dsf Signatures: Dispatcher [employer] EDMS Elaina Carrasco MD MD sd1 Mendez Jimenez, RN RN Timmy Salgado, RN RN bcj Michael, Mayco, PSA PSA cl Edgardo, Qing, PSA PSA ms Bibiana Elamroseanne, Reg Reg lg Ferendzo, Reginald, Security Aide Securpjf Amparo Ray,TISSUE PACKER TISSUE PACKER me3 Caroline Bagley, PSA PSA ml4 Yadira Aguilar Brian, MD MD br1 Montse Campuzano, PSA PSA jfb Dinora Lance, RN RN hs1 Benny Garnett DesireeRN RN dsf Reyna Lowe Jamie jml1 Di Blankenship RN RN ttb Jazmin RushRN RN ms18 Landon Finch, SPONGE MAKER SPONGE MAKER jrd Dinesh Arias rn1 Kristan Pulido RN RN nn1 KevinHattieshanique jp5 Sangita Jhaveri nb2 Corrections: (The following items were deleted from the chart) 09/19 16:44 16:21 Referral Information: Evaluation referral is generated by ms ms 16:56 16:28 Patient presents to Emergency Department with the following symptoms within the ms past 2 weeks: auditory hallucinations this worker ms 17:12 16:41 Pt greeted and oriented to ED. Patient advised of names of staff involved in pjf care, location of call [place], wait times and NPO status. pjf 17:12 16:41 Accompanied by Law Enforcement, lpd - (9.41), pjf pjf 17:16 16:21 Referral Information: Evaluation referral is generated by a police agency: ms [place] [employer]. The patient was referred for evaluation because A order picker order was issued for pt. after an Adult Protective worker found her wandering outside of her apartment when worker went to her house for a visit. Upon going inside, AP worker found pot on stove with burner on and that pt. was disheveled and not taking care of self.. ms 17:16 16:28 Subjective: The patients chief complaint is Pt. answers "no" and "I don't know" ms to majority of questions asked. She did state that she was outside earlier today but did not elaborate why. Pt. does appear disheveled. She also appears to be responding to internal stimuli, mumbles frequently to self and stares off. She denies she is on any medications or goes to out-pt. services.. Delusions are Patient's mood is Auditory Hallucinations are suspected. Pt. last admission to this facility was 02/2014 ( several previous). She had dx of Schizoaffective disorder, bipolar type and Substance Abuse.She denies having any next of kin that she wants contacted ms Chart Complete MTDD
--- NOTE | 2016-09-22 16:28 | EDDOCDS ---
Physician Documentation [facility] Name: Maria Rosen Age: 56 yrs Sex: Female : 1960 Arrival Date: 09/19/2016 Time: 13:51 Bed OBSERVATION Private MD: Disposition: 09/20/16 13:01 Transfer ordered to [facility]. Diagnosis is Schizophrenia. - Reason for transfer: Higher level of care. - Accepting physician is Dr. Ward. - Condition is Stable. - Problem is an acute exacerbation. - Symptoms are unchanged. Historical: - Allergies: Tramadol HCl; Trazodone; - Home Meds: 1. none - PMHx: Schizophrenia; - PSHx: Unable to obtain; - Social history: Smoking status: Patient uses tobacco products, heavy tobacco smoker. No barriers to communication noted, The patient speaks fluent Hungarian, Speaks appropriately for age. - Family history: Not pertinent. - : The pt / caregiver states he / she is not on anticoagulants. Unable to Verify Home Med List with the patient / caregiver. Note unable to get answers about history. . - Exposure Risk Screening:: None identified. Vital Signs: 09/19 14:20 BP 144 / 86; Pulse 101; Resp 20; Temp 96.1(O); Pulse Ox 97% on R/A; jml1 20:29 BP 124 / 75; Pulse 80; Resp 18; Temp 97.1; Pulse Ox 96% ; Pain 0/10; mas 09/20 03:09 BP 120 / 70; Pulse 81; Resp 18; Temp 96.9(T); Pulse Ox 95% ; Pain 0/10; mas 07:37 BP 133 / 74; Pulse 74; Resp 18; Temp 97.2(T); Pulse Ox 97% on R/A; Pain 0/10; dwg 10:09 BP 119 / 78; Pulse 80; Resp 20; Temp 96.9(T); Pulse Ox 98% on R/A; dwg 14:25 BP 116 / 63; Pulse 70; Resp 18; Temp 97.8; Pulse Ox 97% on R/A; Pain 0/10; ttb MDM: 09/19 14:05 Consult PFS/PSA/Forepart Rasper ordered. sd1 14:05 Consult PFS/PSA/Forepart Rasper: Patient's case requires discussion with on-call sd1 Psychiatrist ordered. 14:05 PSA/PFS to call Nursing Oracle Consultant, to enter patient data on [place] Safe [place] if patient sd1 involuntarily admitted or transferred for SI or HI ordered. 14:05 Confirm accurate psychiatric medication list and times of last dosage ordered. sd1 14:05 Detain Pt Until Medically/PFS Cleared ordered. sd1 14:05 Acetaminophen Level Ordered. EDMS 14:05 Basic Metabolic Profile Ordered. EDMS 14:05 Complete Blood Count Ordered. EDMS 14:05 Drug Eval Toxicology ED Only Ordered. EDMS 14:05 Ethyl Alcohol (ethanol) Ordered. EDMS 14:06 Liver Profile Ordered. EDMS 14:06 Salicylate Level Ordered. EDMS 14:06 Thyroid Stimulating Hormone Ordered. EDMS 15:59 Financial registration complete. zo 16:12 Consult PFS/PSA/Forepart Rasper complete. ms 16:12 Consult PFS/PSA/Forepart Rasper: Patient's case requires discussion with on-call ms Psychiatrist complete. 16:12 PSA/PFS to call Nursing Oracle Consultant, to enter patient data [place] Safe [place] if patient ms involuntarily admitted or transferred for SI or HI complete. 16:45 REGULAR DIET PLASTIC CUEVAS+DIET ordered. EDMS 18:36 [facility] Payment Agreement was scanned into [employer] and attached to record. zo 18:53 ECG WITH READING ER PHYS+CARDIAG ordered. EDMS 20:14 Acetaminophen Level Reviewed. br1 20:14 Basic Metabolic Profile Reviewed. br1 20:14 Complete Blood Count Reviewed. br1 20:14 Drug Eval Toxicology ED Only Reviewed. br1 20:14 Salicylate Level Reviewed. br1 20:14 Ethyl Alcohol (ethanol) Reviewed. br1 20:14 Liver Profile Reviewed. br1 20:14 Thyroid Stimulating Hormone Reviewed. br1 20:14 Consult PFS/PSA/Socail Worker: Cleared medically for eval ordered. br1 20:23 Consult PFS/PSA/Socail Worker: Cleared medically for eval complete. cl 09/20 04:18 REGULAR DIET PLASTIC CUEVAS+DIET ordered. EDMS 07:41 UA Ordered. EDMS 07:43 Urine Culture Ordered. EDMS 11:16 REGULAR DIET PLASTIC CUEVAS+DIET ordered. EDMS 11:33 LORazepam 2 mg PO once ordered. sd1 11:33 UA Reviewed. sd1 14:32 MHE Legal paperwork was scanned into [employer] and attached to record. jfb 15:00 -Haloperidol Lactate 5 mg IM once ordered. sd1 15:00 diphenhydrAMINE 25 mg IM once ordered. sd1 15:00 LORazepam 2 mg IM once ordered. sd1 15:01 Restraints, Adult: Chemical - Meds as ordered (poses imminent danger of interfering sd1 with medical interventions). May use manual restraints to ensure safe admin. of meds. Pt. monitoring for min. of 2 hrs per RN policy. ordered. 15:03 ED course: patient became agitated when attempting to place on stretcher to transfer sd1 became belligerent swearing at staff threatening refusing to go attempted to calm patient and explain situation patient refused to cooperate required sedation. The patient poses imminent danger of interfering with medical interventions, The patient requires chemical restraints. 09/22 08:49 T-Sheet-- Draft Copy was scanned into [employer] and attached to record. lg 08:50 ECG/EKG was scanned into [employer] and attached to record. lg Administered Medications: 09/20 13:14 Not Given (Patient Refused): LORazepam 2 mg PO once ms18 15:26 Not Given (Patient Refused): -Haloperidol Lactate 5 mg IM once dsf 15:26 Not Given (Patient Refused): diphenhydrAMINE 25 mg IM once dsf 15:26 Not Given (Patient Refused): LORazepam 2 mg IM once dsf Signatures: Dispatcher [employer] EDDE Elaina Carrasco MD MD sd1 Timmy Sawant, RN RN Mayco Hooks, PSA PSA cl Edgardo, Qing, PSA PSA ms Mary Elam, Reg Miky lg Yadira Aguilar Brian, MD MD br1 Montse Campuzano, PSA PSA jfDinora Smiley RN RN hs1 Neetu Pollack RN RN dsf Di Blankenship RN RN ttb Smith, Mallory RN ms18 The chart was reviewed and I authenticate all verbal orders and agree with the evaluation and treatment provided.Attachments: 09/19 18:36 [facility] Payment Agreement zo 09/22 08:49 T-Sheet-- Draft Copy lg 08:50 ECG/EKG lg Chart Complete MTDD
--- NOTE | 2016-09-22 16:28 | EDDOCDS ---
Physician Documentation [facility] Name: Maria Rosen Age: 56 yrs Sex: Female : 1960 Arrival Date: 09/19/2016 Time: 13:51 Bed OBSERVATION Private MD: Disposition: 09/20/16 13:01 Transfer ordered to [facility]. Diagnosis is Schizophrenia. - Reason for transfer: Higher level of care. - Accepting physician is Dr. Ward. - Condition is Stable. - Problem is an acute exacerbation. - Symptoms are unchanged. Historical: - Allergies: Tramadol HCl; Trazodone; - Home Meds: 1. none - PMHx: Schizophrenia; - PSHx: Unable to obtain; - Social history: Smoking status: Patient uses tobacco products, heavy tobacco smoker. No barriers to communication noted, The patient speaks fluent Kazakh, Speaks appropriately for age. - Family history: Not pertinent. - : The pt / caregiver states he / she is not on anticoagulants. Unable to Verify Home Med List with the patient / caregiver. Note unable to get answers about history. . - Exposure Risk Screening:: None identified. Vital Signs: 09/19 14:20 BP 144 / 86; Pulse 101; Resp 20; Temp 96.1(O); Pulse Ox 97% on R/A; jml1 20:29 BP 124 / 75; Pulse 80; Resp 18; Temp 97.1; Pulse Ox 96% ; Pain 0/10; mas 09/20 03:09 BP 120 / 70; Pulse 81; Resp 18; Temp 96.9(T); Pulse Ox 95% ; Pain 0/10; mas 07:37 BP 133 / 74; Pulse 74; Resp 18; Temp 97.2(T); Pulse Ox 97% on R/A; Pain 0/10; dwg 10:09 BP 119 / 78; Pulse 80; Resp 20; Temp 96.9(T); Pulse Ox 98% on R/A; dwg 14:25 BP 116 / 63; Pulse 70; Resp 18; Temp 97.8; Pulse Ox 97% on R/A; Pain 0/10; ttb MDM: 09/19 14:05 Consult PFS/PSA/Administrative Secretary ordered. sd1 14:05 Consult PFS/PSA/Administrative Secretary: Patient's case requires discussion with on-call sd1 Psychiatrist ordered. 14:05 PSA/PFS to call Nursing Child Welfare Counselor, to enter [place] data [place] if patient sd1 involuntarily admitted or transferred for SI or HI ordered. 14:05 Confirm accurate psychiatric medication list and times of last dosage ordered. sd1 14:05 Detain Pt Until Medically/PFS Cleared ordered. sd1 14:05 Acetaminophen Level Ordered. EDMS 14:05 Basic Metabolic Profile Ordered. EDMS 14:05 Complete Blood Count Ordered. EDMS 14:05 Drug Eval Toxicology ED Only Ordered. EDMS 14:05 Ethyl Alcohol (ethanol) Ordered. EDMS 14:06 Liver Profile Ordered. EDMS 14:06 Salicylate Level Ordered. EDMS 14:06 Thyroid Stimulating Hormone Ordered. EDMS 15:59 Financial registration complete. zo 16:12 Consult PFS/PSA/Administrative Secretary complete. ms 16:12 Consult PFS/PSA/Administrative Secretary: Patient's case requires discussion with on-call ms Psychiatrist complete. 16:12 PSA/PFS to call Nursing Child Welfare Counselor, to enter [place] data [place] if patient ms involuntarily admitted or transferred for SI or HI complete. 16:45 REGULAR DIET PLASTIC CUEVAS+DIET ordered. EDMS 18:36 [facility] Payment Agreement was scanned into [employer] and attached to record. zo 18:53 ECG WITH READING ER PHYS+CARDIAG ordered. EDMS 20:14 Acetaminophen Level Reviewed. br1 20:14 Basic Metabolic Profile Reviewed. br1 20:14 Complete Blood Count Reviewed. br1 20:14 Drug Eval Toxicology ED Only Reviewed. br1 20:14 Salicylate Level Reviewed. br1 20:14 Ethyl Alcohol (ethanol) Reviewed. br1 20:14 Liver Profile Reviewed. br1 20:14 Thyroid Stimulating Hormone Reviewed. br1 20:14 Consult PFS/PSA/Socail Worker: Cleared medically for eval ordered. br1 20:23 Consult PFS/PSA/Socail Worker: Cleared medically for eval complete. cl 09/20 04:18 REGULAR DIET PLASTIC CUEVAS+DIET ordered. EDMS 07:41 UA Ordered. EDMS 07:43 Urine Culture Ordered. EDMS 11:16 REGULAR DIET PLASTIC CUEVAS+DIET ordered. EDMS 11:33 LORazepam 2 mg PO once ordered. sd1 11:33 UA Reviewed. sd1 14:32 MHE Legal paperwork was scanned into [employer] and attached to record. jfb 15:00 -Haloperidol Lactate 5 mg IM once ordered. sd1 15:00 diphenhydrAMINE 25 mg IM once ordered. sd1 15:00 LORazepam 2 mg IM once ordered. sd1 15:01 Restraints, Adult: Chemical - Meds as ordered (poses imminent danger of interfering sd1 with medical interventions). May use manual restraints to ensure safe admin. of meds. Pt. monitoring for min. of 2 hrs per RN policy. ordered. 15:03 ED course: patient became agitated when attempting to place on stretcher to transfer sd1 became belligerent swearing at staff threatening refusing to go attempted to calm patient and explain situation patient refused to cooperate required sedation. The patient poses imminent danger of interfering with medical interventions, The patient requires chemical restraints. 09/22 08:49 T-Sheet-- Draft Copy was scanned into [employer] and attached to record. lg 08:50 ECG/EKG was scanned into [employer] and attached to record. lg Administered Medications: 09/20 13:14 Not Given (Patient Refused): LORazepam 2 mg PO once ms18 15:26 Not Given (Patient Refused): -Haloperidol Lactate 5 mg IM once dsf 15:26 Not Given (Patient Refused): diphenhydrAMINE 25 mg IM once dsf 15:26 Not Given (Patient Refused): LORazepam 2 mg IM once dsf Signatures: Dispatcher [employer] EDAL Elaina Carrasco MD MD sd1 Timmy Sawant, RN RN Mayco Hooks, PSA PSA cl Edgardo, Qing, PSA PSA ms Mary Elam, Reg Miky lg Yadira Aguilar Brian, MD MD br1 Montse Campuzano, PSA PSA jfDinora Smiley RN RN hs1 Neetu Pollack RN RN dsf Di Blankenship RN RN ttb Smith, Mallory RN ms18 The chart was reviewed and I authenticate all verbal orders and agree with the evaluation and treatment provided.Attachments: 09/19 18:36 [facility] Payment Agreement zo 09/22 08:49 T-Sheet-- Draft Copy lg 08:50 ECG/EKG lg Chart Complete MTDD
== END 2016-09-20 15:26 ==
LOC: M ED 13:51
DX: F29 Unspecified psychosis not due to a substance or known physiological condition (principal); F25.9 Schizoaffective disorder, unspecified; F43.10 Post-traumatic stress disorder, unspecified; Z88.8 Allergy status to other drugs, medicaments and biological substances; Z88.5 Allergy status to narcotic agent
CPT/HCPCS: 36415; 80048; 80076; 80306; 81001; 84443; 85027; 87086; 93005; 99285; G0480; J1200; J1630; J2060

== ENCOUNTER 2016-10-19 17:53 | Emergency (ER) | payer MEDICARE ==
[2016-10-19 19:36] LABS: MEAN CORPUSCULAR HEMOGLOBIN 33.6 pg (27.0-33.0); MEAN CORPUSCULAR HGB CONC 34.8 g/dl (32.0-36.5); MEAN CORPUSCULAR VOLUME 96.6 fl (80.0-96.0); RED CELL DISTRIBUTION WIDTH 12.4 % (11.5-14.5); WHITE BLOOD COUNT 7.5 K/mm3 (4.0-10.0)
[2016-10-19 19:53] LABS: METHADONE URINE NEGATIVE (NEGATIVE)
[2016-10-19 20:02] LABS: ALBUMIN 4.2 GM/DL (3.2-5.2); ALKALINE PHOSPHATASE 88 U/L (45-117); ALT/SGPT 23 U/L (12-78); ANION GAP 10 MEQ/L (8-16); AST/SGOT 13 U/L (15-37); BILIRUBIN,DIRECT 0.1 MG/DL (0.0-0.2); BILIRUBIN,TOTAL 0.4 MG/DL (0.2-1.0); BLOOD UREA NITROGEN 16 MG/DL (7-18); CARBON DIOXIDE LEVEL 25 MEQ/L (21-32); CHLORIDE LEVEL 108 MEQ/L (98-107); CREATININE FOR GFR 0.96 MG/DL (0.55-1.02); GLOMERULAR FILTRATION RATE > 60.0 (>51); GLUCOSE, FASTING 188 MG/DL (70-105); POTASSIUM SERUM 3.9 MEQ/L (3.5-5.1); SODIUM LEVEL 143 MEQ/L (136-145)
[2016-10-19 22:11] VITALS: BP 122/85
== END 2016-10-20 00:36 | disposition home or self-care (01) ==
LOC: M ED 20:14
DX: Z60.9 Problem related to social environment, unspecified (principal); K21.9 Gastro-esophageal reflux disease without esophagitis; F17.210 Nicotine dependence, cigarettes, uncomplicated; Z79.899 Other long term (current) drug therapy; Z88.8 Allergy status to other drugs, medicaments and biological substances; F31.9 Bipolar disorder, unspecified; F20.9 Schizophrenia, unspecified
CPT/HCPCS: 36415; 80048; 80076; 80306; 84443; 85027; 99285; G0480

== ENCOUNTER 2016-12-22 13:17 | Inpatient (IN) | payer OTHER, MEDICARE ==
[~2016-12-22] VITALS: Ht 162.6 cm; Wt 54.7 kg
[2016-12-22 14:51] LABS: MEAN CORPUSCULAR HEMOGLOBIN 32.9 pg (27.0-33.0); MEAN CORPUSCULAR VOLUME 99.8 fl (80.0-96.0); RED CELL DISTRIBUTION WIDTH 13.2 % (11.5-14.5); WHITE BLOOD COUNT 7.6 K/mm3 (4.0-10.0)
[2016-12-22 15:21] LABS: ALBUMIN 4.3 GM/DL (3.2-5.2); ALBUMIN/GLOBULIN RATIO 1.48 (1.00-1.93); ALKALINE PHOSPHATASE 80 U/L (45-117); ALT/SGPT 25 U/L (12-78); ANION GAP 8 MEQ/L (8-16); AST/SGOT 14 U/L (15-37); BILIRUBIN,DIRECT 0.1 MG/DL (0.0-0.2); BILIRUBIN,TOTAL 0.5 MG/DL (0.2-1.0); BLOOD UREA NITROGEN 10 MG/DL (7-18); CALCIUM LEVEL 9.3 MG/DL (8.5-10.1); CARBON DIOXIDE LEVEL 25 MEQ/L (21-32); CHLORIDE LEVEL 112 MEQ/L (98-107); CREATININE FOR GFR 0.81 MG/DL (0.55-1.02); GLOMERULAR FILTRATION RATE > 60.0 (>51); GLUCOSE, FASTING 116 MG/DL (70-105); POTASSIUM SERUM 3.9 MEQ/L (3.5-5.1); SODIUM LEVEL 145 MEQ/L (136-145); TOTAL PROTEIN 7.2 GM/DL (6.4-8.2)
[2016-12-22 16:53] LABS: METHADONE URINE NEGATIVE (NEGATIVE)
[2016-12-22] MEDS ORDERED: QUEtiapine FUMARATE 100 MG TAB PO PRN (17:45)
[2016-12-22] MEDS ORDERED: MAALOX 30 ML SUSP *UDC PO PRN (17:45)
[2016-12-22] MEDS ORDERED: MOM 30ML SUSPENSION UDC PO PRN (17:45)
[2016-12-22] MEDS ORDERED: HALOPERIDOL 5 MG/ML VIAL (J1630) As Ordered ONE (18:04)
[2016-12-22] MEDS ORDERED: diphenhydrAMINE INJ 50MG/ML VIAL (J1200) As Ordered ONE (18:04)
[2016-12-22] MEDS ORDERED: diphenhydrAMINE INJ 50MG/ML VIAL (J1200) IM ONE (18:15)
[2016-12-22] MEDS ORDERED: HALOPERIDOL 5 MG/ML VIAL (J1630) IM ONE (18:15)
[2016-12-22 19:45] VITALS: BP 139/65
[2016-12-22] MEDS: OLANZapine 10 MG TAB PO SCH (21:00)
--- NOTE | 2016-12-22 22:53 | HPE ---
DATE OF ADMISSION: 12/22/2016 HISTORY OF PRESENT ILLNESS: Please refer to psychiatric history and evaluation for further details on this admission. This examination and history is intended for medical issues, which may need treatment, followup or consult on this 56-year-old female. ALLERGIES: TRAZODONE SOCIAL HISTORY: She is . She will not answer questions. She goes off into tangents. She is refusing to talk. She is refusing to have a physical exam, and further information is taken from the medical record. MEDICATIONS: Zyprexa 10 mg by mouth daily twice a day PAST MEDICAL HISTORY: Gastroesophageal reflux disease. PAST SURGICAL HISTORY: section, tonsillectomy, spinal fusion. LABORATORY DATA: WBC 7.6, hemoglobin 14.5, hematocrit 43.8, MCV 99.8, platelets 356. Sodium 145, potassium 3.9, chloride 112, CO2 25, BUN and creatinine 10 and 0.81, AST 14, ALT 25. Toxicology screen was negative. REVIEW OF SYSTEMS: The patient would not participate in review of systems. PHYSICAL EXAMINATION: Refused physical exam.
[2016-12-23] MEDS: FOLIC ACID 1 MG TAB PO SCH (09:00)
[2016-12-23] MEDS: MULTIVITAMINS/MINERALS THERAP 1 TAB PO SCH (09:00)
[2016-12-23] MEDS: OLANZapine 10 MG TAB PO SCH ×2 (09:00→21:00)
[2016-12-23] MEDS: THIAMINE 100 MG TAB PO SCH (09:00)
--- NOTE | 2016-12-23 13:56 | MHHPE ---
DATE OF ADMISSION: 12/22/2016 LEGAL STATUS AT ADMISSION: 939 legal status. CHIEF COMPLAINT: "Can I go home". HISTORY OF PRESENT ILLNESS: 56-year-old female with a long psychiatric history including schizophrenia/schizoaffective disorder and polysubstance dependency in the remote past. Patient was admitted on a 939 legal status. According to the chart patient was brought to our ED (emergency department) at 9:41 after her circus supervisor reported that she has been noncompliant with the medications, she is psychotic and is unable to attend to activities of daily living (ADLs). Patient has no insight into her illness. Apparently, has not been taking the medications since she was discharged from the hospital. During the interview today patient is requesting to be discharged. Patient has no insight, is minimizing the events that lead to the admission. Patient admits that she was not taking a shower, but "that was because I have something wrong with the water pipes, but now I got it fixed". Patient has no support. Patient appears to be responding to internal stimuli. Again patient has no insight and is unable to provide information. Patient does not think she needs treatment and she is not willing to take medication. PAST MEDICAL HISTORY: Patient is unable to provide information. Per chart patient has been diagnosed with gastroesophageal reflux disease (GERD), DJD (degenerative joint disease), and spinal fusion. ALLERGIES: TRAMADOL and TRAZODONE. PAST PSYCHIATRIC HISTORY: As above. Patient has many psychiatric hospitalizations. Has been diagnosed with schizophrenia/schizoaffective disorder and polysubstance dependency. FAMILY HISTORY Patient is unable to provide information. It is reported in the chart that her father was an alcoholic. SUBSTANCE ABUSE HISTORY: Patient denies any current use of drugs or alcohol. Per chart patient has a long history of polysubstance dependency including marijuana, alcohol, and Xanax. SOCIAL HISTORY: Patient is unable to provide information. Patient lives alone. Has very poor support. Has three children. Is on Supplemental Security Income (SSI). REVIEW OF SYSTEMS: Unable to obtain. Patient is uncooperative. PHYSICAL EXAMINATION: As per physician dental ceramist assistant. LABS AT ADMISSION: CBC is unremarkable except MCV of 99.8, CMP within normal limits, TSH within normal limits, UBS is negative, blood alcohol negative is negative. MENTAL STATUS EXAMINATION: Patient is dressed in [facility]. Patient is unable to provide information. Speech is poor and mumbling. Poor eye contact. Mood is restricted, irritated. Affect is blunted. Patient cannot be tested for cognitive functions, orientation, attention, concentration, and memory because of her inability to cooperate. Patient appears to be responding to internal stimuli. Patient appears to be paranoid. Patient is denying suicidal or homicidal ideation, but again she is minimizing any symptoms in order to be discharged. Judgment and insight are very poor. DIAGNOSIS: [place] I: Schizophrenia. Polysubstance dependency by history. [place] II: Deferred. [place] III: Gastroesophageal reflux disease (GERD), degenerative joint disease (DJD). INITIAL TREATMENT PLAN: Patient was admitted under 939 legal status. Complete history was obtained with her permission. Family will be contacted and categories will be expanded. Her medication regimen will be reviewed and changed accordingly. She will be provided with protected environment. She will be treated with individual group and milieu therapy. She will also receive supportive psychoeducation. Discharge planning will commence immediately. Length of her stay will be between 7-10 days. Patient followup will be strongly recommended. Treatment plan will focus initially on altered thoughts, altered perceptions, risks to harm self and others and substance abuse.
[2016-12-23 18:00] VITALS: BP 104/64
[2016-12-24 06:44] VITALS: BP 101/62
[2016-12-24] MEDS: OLANZapine 10 MG TAB PO SCH (09:00)
[2016-12-24] MEDS: FOLIC ACID 1 MG TAB PO SCH (09:00)
[2016-12-24] MEDS: OLANZapine 5 MG TAB PO SCH ×2 (09:00→22:16)
[2016-12-24] MEDS: THIAMINE 100 MG TAB PO SCH (09:00)
[2016-12-24] MEDS: MULTIVITAMINS/MINERALS THERAP 1 TAB PO SCH (09:00)
[2016-12-24 18:00] VITALS: BP 112/68
--- NOTE | 2016-12-24 22:01 | IPN ---
DATE: 12/24/2016 A 50-year-old with long history of schizophrenia and polysubstance dependency, admitted on a 939 legal status. The patient was unable to take care of activities of daily living (ADLs). The patient was disorganized and psychotic. SUBJECTIVE: "I don't need to be here. I want to go home." OBJECTIVE: No major changes from yesterday. The patient continues psychotic and disorganized. The patient has no interaction with other patients and staff. The patient is unwilling to take medications. MENTAL STATUS EXAMINATION: Patient dressed in [facility]. The patient is uncooperative, poor eye contact. Speech is very poor. Mood is euthymic. Affect is blunted. The patient appears to react to internal stimuli. The patient is paranoid. Memory, attention and concentration could not be tested because of her un-cooperation. Insight and judgment are very poor. ASSESSMENT: 1. Schizophrenia. 2. Polysubstance dependency by history. PLAN: 1. Continue with Zyprexa 5 mg by mouth twice a day. 2. Continue close monitoring.
[2016-12-25 06:00] VITALS: BP 111/59
[2016-12-25] MEDS: OLANZapine 5 MG TAB PO SCH ×2 (09:25→22:34)
--- NOTE | 2016-12-25 16:45 | IPN ---
DATE: 12/15/2016 50-year-old female with long history of schizophrenia and polysubstance dependency, admitted on a 9.39 legal status. The patient was unable to take care of her activities of daily living (ADLs). The patient was disorganized and psychotic. SUBJECTIVE: "I don't need to be here." OBJECTIVE: Patient has started taking the medications. Patient has very little insight into her psychiatric problems. Patient is minimally interacting with other patient's but is out of the room and eating and sleeping okay. No evidence of agitation or behavioral disturbances. Patient is denying suicidal or homicidal ideation but again she is focused on discharge and is minimizing any symptoms MENTAL STATUS EXAMINATION: Patient dressed in [facility]. The patient is minimally cooperative, has poor eye contact, speech is very poor. She does not want to engage in conversation. Mood is euthymic. Affect is blunted. The patient appears to react to internal stimuli intermittently. The patient continues to be paranoid and delusion. Memory, attention and concentration are fair. Insight and judgment are very poor. ASSESSMENT: 1. Schizophrenia. 2. Polysubstance dependency by history. PLAN: 1. Continue with Zyprexa 5 mg by mouth twice a day. 2. Continue close monitoring.
[2016-12-25 18:00] VITALS: BP 85/54
[2016-12-26] MEDS: OLANZapine 5 MG TAB PO SCH (08:00)
[2016-12-26] MEDS ORDERED: LORazepam 2 MG TAB PO STA (14:30)
[2016-12-26] MEDS ORDERED: HALOPERIDOL 5 MG TAB PO STA (14:30)
[2016-12-26] MEDS ORDERED: LORazepam 2 MG/ML VIAL (J2060) IM STA (14:36)
[2016-12-26] MEDS ORDERED: HALOPERIDOL 5 MG/ML VIAL (J1630) IM STA (14:36)
[2016-12-26 14:59] VITALS: BP 120/74
--- NOTE | 2016-12-26 16:47 | IPN ---
DATE: 12/26/2016 56-year-old female with long history of schizophrenia and polysubstance dependency admitted to our unit on a 9.39 legal status. Patient was unable to take care of her activities of daily living (ADLs), she was disorganized and psychotic. SUBJECTIVE: "I want to go home." OBJECTIVE: Information from case management shows that patient was very paranoid. She said that her mother was bringing her food but she does not believe that the patient was taking it. She is unsure what the patient was doing with this food that the mother was bringing. Also stated that the apartment is in very poor condition. Patient continues with very little insight and is minimizing any symptoms and requesting to be discharged. Patient is not willing to engage in any conversation or treatment. She is only asking to leave. Patient continues paranoid. Patient got agitated and was yelling and crying, she was not re-directable, and finally had to be medicated with Haldol 5 mg and Ativan 2 mg intramuscularly (IM). MENTAL STATUS EXAMINATION: Patient is dressed in [facility]. Patient is uncooperative, unwilling to give information or to engage in any type of conversation. Patient is only focused on discharge. Patient is angry. Her affect is blunted. Appears to react to internal stimuli. Patient is paranoid. Insight and judgment is very poor. ASSESSMENT: 1. Schizophrenia. 2. Polysubstance dependency. PLAN: 1. Discontinue Zyprexa. 2. Start Risperdal 2 mg by mouth twice a day. 3. Continue close observation.
[2016-12-26] MEDS: risperiDONE 2 MG TAB PO SCH (21:00)
[2016-12-27] MEDS: risperiDONE 2 MG TAB PO SCH ×3 (08:54→20:46)
--- NOTE | 2016-12-27 15:25 | IPN ---
DATE: 12/27/2016 A 56-year-old female with a long history of schizophrenia and polysubstance dependency. The patient was admitted because of psychotic and disorganized behavior and inability to take care of activities of daily living (ADLs). SUBJECTIVE: "I want to go home." OBJECTIVE: No major changes from yesterday. The patient has stopped taking the medications. Continues paranoid, irritable, impulsive with very little insight. The patient does not want to engage in conversation. She is only interested in being discharged from the hospital. The patient does not interact with other patients and staff. MENTAL STATUS EXAMINATION: The patient is dressed in [facility]. The patient is uncooperative, irritable, impulsive. Poor eye contact. Speech is poor, not interested in conversation. Mood is euthymic. Affect is blunted. The patient continues to be paranoid, delusional, reacting to internal stimuli. Memory, attention, and concentration could not be tested. Insight and judgment is very poor. ASSESSMENT: 1. Schizophrenia. 2. Polysubstance dependency. PLAN: 1. Continue Risperdal 2 mg by mouth twice a day. 2. Continue close observation.
[2016-12-28] MEDS: risperiDONE 2 MG TAB PO SCH ×2 (09:07→21:00)
[2016-12-28] MEDS ORDERED: TUBERCULIN PPD 5 UNITS/0.1 ML ID ONE (11:00)
--- NOTE | 2016-12-28 15:15 | IPN ---
DATE: 12/28/2016 A 56-year-old female with a history of schizophrenia admitted to our unit on 9.39 legal status. The patient was psychotic, delusional, paranoid, and disorganized behavior. The patient was unable to take care of her activities of daily living (ADLs). SUBJECTIVE: "I need to go home." OBJECTIVE: No major changes. The patient continue paranoid, at times irritable and impulsive. The patient has taken the medication last evening and this morning. The patient is mostly by herself and does not interact with other patients or staff. MENTAL STATUS EXAMINATION: The patient is dressed in [facility]. The patient continues to be uncooperative, at times irritable, impulsive and needs to be redirected. Speech is poor, not interested in conversation. Mood is euthymic. Affect is blunted. The patient continues to be paranoid, delusional, and reacting to internal stimuli. Attention, and concentration could not be tested. Insight and judgment is very poor. ASSESSMENT: Schizophrenia. PLAN: 1. Continue Risperdal 2 mg by mouth twice a day. 2. Continue close observation. 3. Continue medication management, individual and group psychotherapy as tolerated by the patient.
[2016-12-29 06:00] VITALS: BP 123/76
[2016-12-29] MEDS: risperiDONE 2 MG TAB PO SCH ×2 (09:15→21:45)
--- NOTE | 2016-12-29 16:39 | IPN ---
DATE: 12/29/2016 A 56-year-old female with history of schizophrenia, admitted to our unit on a 9.39 legal status. Patient was psychotic, delusional, paranoid, and disorganized. Patient was unable to take care of her activities of daily living (ADLs). SUBJECTIVE: "I want to change the doctor." OBJECTIVE: No major changes. Patient continues paranoid, delusional. At times she is irritable and impulsive. She can be redirected better. Patient is pacing the floors. No interactions with other patients and staff. MENTAL STATUS EXAMINATION: Patient is dressed [facility]. Patient continues to be uncooperative and at times irritable and impulsive. Speech is poor. Mood is euthymic. Affect is blunted. Patient continues with paranoid delusions and interacting to internal stimuli. Attention and concentration could not e tested. Insight and judgment are very poor. ASSESSMENT: Schizophrenia. PLAN: 1. Continue Risperdal 2 mg by mouth twice a day. 2. Continue close observation. 3. Continue medication management, individual and group therapy as tolerated by the patient.
[2016-12-29] MEDS: ACETAMINOPHEN TAB 650MG DOSE (2X325MG) PO PRN (22:32)
[2016-12-30] MEDS: risperiDONE 2 MG TAB PO SCH ×2 (09:57→20:13)
[2016-12-30] MEDS: PPD DOCUMENTATION ENTRY MISC XX SCH (10:22)
[2016-12-30] MEDS: ACETAMINOPHEN TAB 650MG DOSE (2X325MG) PO PRN ×2 (12:00→22:15)
[2016-12-30] MEDS: IBUPROFEN 600 MG TAB PO PRN (16:36)
[2016-12-31] MEDS: risperiDONE 2 MG TAB PO SCH ×2 (09:15→21:00)
[2016-12-31] MEDS: PPD DOCUMENTATION ENTRY MISC XX SCH (10:08)
[2016-12-31] MEDS: IBUPROFEN 600 MG TAB PO PRN (14:18)
[2016-12-31] MEDS ORDERED: diphenhydrAMINE INJ 50MG/ML VIAL (J1200) IM STA (16:44)
[2016-12-31] MEDS ORDERED: HALOPERIDOL 5 MG/ML VIAL (J1630) IM STA (16:44)
[2016-12-31] MEDS ORDERED: LORazepam 2 MG/ML VIAL (J2060) IM STA (16:44)
[2016-12-31 17:04] VITALS: BP 126/81
[2016-12-31 18:00] VITALS: BP 130/80
[2017-01-01] MEDS: risperiDONE 2 MG TAB PO SCH ×2 (08:29→21:56)
--- NOTE | 2017-01-01 15:00 | IPN ---
DATE: 01/01/2017 56-year-old female with a history of schizophrenia admitted for decompensation of psychosis, delusional, paranoid and disorganized behavior. Patient was unable to take care of activities of daily living. SUBJECTIVE: "I want to go home." OBJECTIVE: Patient continues paranoid, delusional and at times needs to be redirected. During the weekend, the patient had to be placed in seclusion and medicated because of agitated behavior. Patient remains irritable and at times impulsive. Patient has been compliant with the medication in the last 24 hours. Patient remains to herself with no interaction with other patient's and staff. Patient is pacing the floors. MENTAL STATUS EXAMINATION: Patient dressed in [facility]. Patient continues uncooperative, irritable and impulsive at times. Speech is very poor. Not interested in engaging conversation. Patient continues delusional, paranoid and reactive to internal stimuli. Insight and judgment is very poor. ASSESSMENT: Schizophrenia. PLAN: 1. Continue Risperdal 2 mg by mouth twice a day. 2. Continue close observation. 3. Continue medication management, individual and group therapy as tolerated by the patient.
[2017-01-01 18:00] VITALS: BP 129/76
[2017-01-02] MEDS: risperiDONE 2 MG TAB PO SCH ×2 (09:04→21:45)
--- NOTE | 2017-01-02 15:16 | IPN ---
DATE: 01/02/2017 A 56-year-old female with history of schizophrenia admitted for decompensation of psychosis. The patient was delusional, paranoid and disorganized. The patient was unable to take care of activities of daily living (ADLs). SUBJECTIVE: "I need to go home." OBJECTIVE: No major changes. The patient continues paranoid and delusional. No psychomotor agitation for the last 24 hours. The patient is compliant with the medication. The patient continues without insight. The patient is focusing on discharge issues only. She is not invested in interactions with other patients or staff. She has a tendency to remain by herself. MENTAL STATUS EXAMINATION: The patient is dressed in [facility]. The patient continues psychotic, paranoid and delusional. The patient is unwilling to fully cooperate with mental status. Speech is very poor. Mood is euthymic. Affect is blunted. She continues to display paranoid delusions. No evidence of auditory or visual hallucinations. Memory, attention and concentration could not be tested. Insight and judgment is very poor. ASSESSMENT: Schizophrenia. PLAN: 1. Continue Risperdal 2 mg by mouth twice a day. 2. Continue close observation. 3. Continue medication management, individual and group therapy as tolerated by the patient.
[2017-01-02 18:00] VITALS: BP 135/80
[2017-01-02] MEDS ORDERED: hydrOXYzine 25 MG TAB PO PRN (20:30)
[2017-01-02] MEDS: IBUPROFEN 600 MG TAB PO PRN (22:27)
[2017-01-03 06:10] VITALS: BP 103/61
[2017-01-03] MEDS: risperiDONE 2 MG TAB PO SCH ×2 (08:26→20:12)
--- NOTE | 2017-01-03 17:49 | IPN ---
DATE: 01/03/2017 A 56-year-old female with a history of schizophrenia, admitted for decompensation of psychosis. Patient was delusional, paranoid, disorganized, and she was unable to take care of activities of daily living (ADLs). SUBJECTIVE: "I want to go home." OBJECTIVE: Patient is improving slowly. Although she continues paranoid an delusions, does not appear to react to internal stimuli. Nursing reports that patient may be cheeking her medications. Patient is not invested in conversation or interactions with other patients. Patient remains by herself. No agitation during the last 48 hours. MENTAL STATUS EXAMINATION: Patient is dressed in [facility]. Patient continues psychotic, paranoid, and delusional, unwilling to fully cooperative with mental status. Speech is very poor., Not interested in engaging in conversation. Mood is euthymic. Affect is blunted. Patient continues to display paranoid delusions. No evidence of auditory hallucinations. Memory, attention, and concentration could not be tested. Insight and judgment are very poor. ASSESSMENT: Schizophrenia. PLAN: 1. Continue Risperdal 2 mg by mouth twice a day. 2. Continue close observation. 3. Continue medication management, individual and group therapy.
[2017-01-03 18:00] VITALS: BP 133/79
[2017-01-03] MEDS: IBUPROFEN 600 MG TAB PO PRN (20:13)
[2017-01-04 06:40] VITALS: BP 111/55
[2017-01-04] MEDS: IBUPROFEN 600 MG TAB PO PRN ×2 (08:38→17:22)
[2017-01-04] MEDS: risperiDONE 2 MG TAB PO SCH ×2 (08:38→21:01)
--- NOTE | 2017-01-04 15:17 | IPN ---
DATE: 01/04/2017 56-year-old female with a history of schizophrenia, admitted for decompensation of psychosis. The patient was delusional, paranoid, disorganized, and unable to take care of activities of daily living. SUBJECTIVE: "I need to go home." OBJECTIVE: The patient continues improving. The patient has been compliant with medication. The patient no longer has psychomotor agitation. The patient prefers to stay by herself and does not wish to interact with other patients. Denies side effects from medication. Today, her case liner will come for a meeting with the team. MENTAL STATUS EXAMINATION: The patient is dressed in [facility]. The patient is improved from the psychotic point of view. Is significantly less delusional. No evidence of auditory or visual hallucinations. She is not engaging in conversation. Mood is euthymic. Affect is blunted. Memory, attention, and concentration could not be tested. ASSESSMENT: Schizophrenia. PLAN: Continue with Risperdal 2 mg by mouth twice a day. Continue medication management, individual and group therapy as tolerated by the patient.
[2017-01-04 18:32] VITALS: BP 127/76
[2017-01-04] MEDS: ACETAMINOPHEN TAB 650MG DOSE (2X325MG) PO PRN (19:39)
[2017-01-05] MEDS: IBUPROFEN 600 MG TAB PO PRN (09:04)
[2017-01-05] MEDS: risperiDONE 2 MG TAB PO SCH (09:04)
[2017-01-05] MEDS ORDERED: RISP2TAB3 PO (10:06)
[2017-01-05] MEDS: ACETAMINOPHEN TAB 650MG DOSE (2X325MG) PO PRN (10:11)
--- NOTE | 2017-01-05 21:33 | MHDS ---
DATE OF ADMISSION: 12/22/2016 DATE OF DISCHARGE: 01/05/2017 LEGAL STATUS ON ADMISSION: 9.39 legal status. HISTORY OF THE PRESENT ILLNESS: A 56-year-old female with a long psychiatric history with diagnosis of schizophrenia and polysubstance dependency in the remote past. The patient was admitted on a 9.39 legal status. According to the chart, the patient was brought to the emergency department (ED) on a 9.41 after her fiber product cutting machine operator reported that she has not been compliant with medications, that she was psychotic, unable to take care of her activities of daily living (ADLs), patient was disorganized, paranoid, delusional and reacting to internal stimuli. Apparently the patient has not been taking any medication since she was discharged from the hospital. During the first interview, the patient was requesting to be discharged. The patient was not interested in engaging in any type of conversation. She was irritable, angry and was unable to follow structure of interview or cooperate with mental status examination. LABORATORY AT ADMISSION: Her CBC showed an MCV of 99.8, CMP was unremarkable except chloride of 112 and AST of 14. Urine drug screen was negative. Blood alcohol level was negative. HOSPITAL COURSE: After the first interview, the patient was placed on Zyprexa 10 mg by mouth twice a day, but the patient refused to take the medication during the first day. She was intermittently compliant. I was thinking about long-acting injections, but since she was on Zyprexa and we do not carry the long-acting, the patient was switched to Risperdal 2 mg by mouth twice a day. She tolerated well this medication. She was intermittently compliant with it for the first day but then became fully compliant. She has improved slowly but steadily. Her delusions, hallucinations have been improving to her baseline where she does not react to internal stimuli, she does not act on her delusions but she remains isolated, not invested in interaction with other patients or staff. She stays mostly by herself. The patient is eating and is sleeping properly. At the moment of discharge, the patient is at baseline, stable, remains with low insight, she is not agitated, she is not acting out on her delusions, so she does not meet the criteria for involuntary hospitalization. The patient denies any suicidal or homicidal ideation. The patient denies auditory or visual hallucinations and, again, is not acting on her delusions. Therefore, it was decided to discharge the patient on 01/05/2017. At this time, the patient is agreeable to continue taking the medication and followup appointments. A meeting with her comp field case manager was held the day before discharge, and she agreed to followup the treatment plan and recommendations. DISCHARGE MEDICATIONS: - Risperdal 2 mg by mouth twice a day MENTAL STATUS EXAMINATION: The patient was dressed in [facility]. The patient is cooperative. Speech is poor. Has fair eye contact. Mood is euthymic. Affect is blunted. The patient is oriented to time, person and situation. Attention, concentration and memory are fair. The patient does not have auditory or visual hallucinations. The patient continues to have some paranoid delusions, but is not acting on them. Denies suicidal or homicidal ideation. Judgment is fair Insight is poor. DISCHARGE DIAGNOSES: [place] I: Schizophrenia and alcohol dependency in recovery. Polysubstance dependency by history. [place] II: Deferred. [place] III: Gastroesophageal reflux disease (GERD) and degenerative joint disease (DJD). CONDITION AT DISCHARGE: Stable. Patient denies auditory or visual hallucinations. No suicidal or homicidal ideation. Delusions are at baseline. INSTRUCTIONS TO THE PATIENT: The patient is to continue taking her medications as prescribed and followup appointments. She was advised to maintain absolute sobriety from drugs and alcohol. The patient has a scheduled appointment for medication management, individual therapy and primary care physician.
== END 2017-01-05 14:44 | disposition home or self-care (01) | DRG 750 ==
LOC: M ED 13:54 → M ED INP 17:42 → M PSY 19:45
PROVIDERS: ADMIT Psychiatry & Neurology Psychiatry; ATTEND Psychiatry & Neurology Psychiatry
DX: F20.9 Schizophrenia, unspecified (principal); F10.21 Alcohol dependence, in remission; K21.9 Gastro-esophageal reflux disease without esophagitis; Z88.8 Allergy status to other drugs, medicaments and biological substances; Z79.899 Other long term (current) drug therapy

== ENCOUNTER 2017-03-01 13:27 | Inpatient (IN) | payer MEDICARE, OTHER ==
[~2017-03-01 13:27] MED LIST changes: +RISP2TAB3 PO
[2017-03-01 15:11] LABS: MEAN CORPUSCULAR HEMOGLOBIN 33.9 pg (27.0-33.0); RED CELL DISTRIBUTION WIDTH 12.8 % (11.5-14.5); WHITE BLOOD COUNT 5.8 K/mm3 (4.0-10.0)
[2017-03-01 15:45] LABS: ALBUMIN 4.3 GM/DL (3.2-5.2); ALBUMIN/GLOBULIN RATIO 1.65 (1.00-1.93); ALKALINE PHOSPHATASE 85 U/L (45-117); ALT/SGPT 19 U/L (12-78); ANION GAP 10 MEQ/L (8-16); AST/SGOT 12 U/L (15-37); BILIRUBIN,DIRECT 0.1 MG/DL (0.0-0.2); BILIRUBIN,TOTAL 0.4 MG/DL (0.2-1.0); BLOOD UREA NITROGEN 5 MG/DL (7-18); CALCIUM LEVEL 9.3 MG/DL (8.5-10.1); CARBON DIOXIDE LEVEL 23 MEQ/L (21-32); CHLORIDE LEVEL 114 MEQ/L (98-107); CREATININE FOR GFR 0.67 MG/DL (0.55-1.02); GLOMERULAR FILTRATION RATE > 60.0 (>51); GLUCOSE, FASTING 108 MG/DL (70-105); POTASSIUM SERUM 4.2 MEQ/L (3.5-5.1); SODIUM LEVEL 147 MEQ/L (136-145); TOTAL PROTEIN 6.9 GM/DL (6.4-8.2)
[2017-03-01 16:03] LABS: METHADONE URINE NEGATIVE (NEGATIVE)
[2017-03-01] MEDS ORDERED: LORazepam 2 MG/ML VIAL (J2060) IM ONE (18:45)
[2017-03-01] MEDS ORDERED: HALOPERIDOL 5 MG/ML VIAL (J1630) IM ONE (18:45)
[2017-03-01] MEDS ORDERED: diphenhydrAMINE INJ 50MG/ML VIAL (J1200) IM ONE (18:45)
[2017-03-01] MEDS ORDERED: RISP2TAB32 PO (19:11)
[2017-03-01 23:11] VITALS: BP 100/70
[2017-03-01] MEDS ORDERED: MOM 30ML SUSPENSION UDC PO PRN (23:30)
[2017-03-01] MEDS ORDERED: MAALOX 30 ML SUSP *UDC PO PRN (23:30)
[2017-03-01] MEDS ORDERED: OLANZapine ORAL DISINTEGRATING TAB 5MG PO PRN (23:30)
[2017-03-01] MEDS ORDERED: LORazepam 1 MG TAB PO PRN (23:30)
[2017-03-01] MEDS ORDERED: ACETAMINOPHEN TAB 650MG DOSE (2X325MG) PO PRN (23:30)
[2017-03-02] MEDS: risperiDONE 2 MG TAB PO SCH ×2 (08:33→21:00)
--- NOTE | 2017-03-02 11:11 | HPEPDOC ---
Medical History and Physical Date of Admission Mar 01, 2017 at 18:39 History and Physical PCP: None ATTENDING: Dr. Sivakumar Corea HPI: 56yoF admitted to [facility] for schizophrenia, being medically examined today. Patient verbalizes no complaints today. She is unable to provide history and occasionally whispers answers, however answers very few questions. Reluctant to make eye contact. Subsequently been sore knees and crosses her arms declining to participate any further. Much of history is taken from the chart. Does not report fevers, chills, weakness, fatigue, SNOW, CP, SOB, cough, palpitations, abdominal pain, N/V/D or changes in bowel or bladder habits. PMHx: Bipolar disorder Schizophrenia Tobacco use PSHX: Tonsillectomy Spinal fusion SOCHX: Resides in: [facility] Marital Status: Single Employment: Unemployed Tobacco use: 1 Pack per day ETOH: Denies Illicit Drugs: Denies IV Drug Use: Denies Tattoos done unprofessionally: Denies FAMHX: Unable to obtain at this time ROS: As noted in HPI, otherwise 11pt ROS of systems reviewed and remarkable only for LMP unknown PE: GEN: 56 yo F, appears stated age. Poor personal hygiene. No acute distress. Alert. Unable to respond to questions, affect is flat, avoids eye contact. Does not wish to participate with exam, subsequently folding her arms and bending her legs. Later she left the exam room. HEENT: Normocephalic, atraumatic. Pupils are equal, round, and reactive to light. Extraocular movements are intact. No nystagmus appreciated. Sclera are nonicteric. Conjunctiva without injection. Nose midline. Nasal turbinates without bogginess. EACs both patent BL. TMs both visualized and rodriguez with good cone of light, no bulging or erythema. No facial asymmetry. Moist mucous membranes. Dentition poor. Pharynx pink and moist, no cobblestoning. Neck supple , trachea midline. No lymphadenopathy or thyromegaly appreciated. CHEST: Regular rate and rhythm, +S1, +S2 LUNGS: Clear to auscultation bilaterally. No wheezes, rales, or rhonchi. Breathing appears symmetric and easy. No accessory muscle use. ABD: Unable to complete EXT: Unable to complete SKIN: [place], No rashes noted. NEURO: Unable to complete. However the patient is ambulating without any assistive devices. She seems to be steady on her feet. She is moving upper and lower extremities. EKG: Pending. A&P: 56yoF admitted to [facility] for schizophrenia 1. Psych. Plan per Psychiatry. Obtain baseline EKG to assure the safety of psychiatric medications as they can prolong the QT interval. Request UA/urine culture. 2. Nicotine dependence. Patch available. 3. Hypernatremia. Oral intake is improving. Recheck CMP in a.m. 4. Follow up. No Primary Care Provider. Will attempt to establish PCP on discharge. 5. Macrocytosis. Appears to be chronic, trend improved. Check vitamin B12/ folate. Also add iron studies. 6. Staff member Abby HERNANDEZ present throughout exam. Vital Signs Vital Signs Date Time Temp Pulse Resp B/P (MAP) Pulse Ox O2 Delivery O2 Flow Rate FiO2 03/01/17 23:11 98.1 58 16 100/70 (80) 03/01/17 22:18 96 03/01/17 19:04 Room Air Laboratory Data Labs 24H Laboratory Tests 2 03/01/17 14:42: Anion Gap 10, Glomerular Filtration Rate > 60.0, Calcium Level 9.3, Aspartate Amino Transf (AST/SGOT) 12L, Alanine Aminotransferase (ALT/SGPT) 19, Alkaline Phosphatase 85, Total Bilirubin 0.4, Direct Bilirubin 0.1, Total Protein 6.9, Albumin 4.3, Albumin/Globulin Ratio 1.65, Thyroid Stimulating Hormone (TSH) 0.424, Salicylates Level 3.7L, Acetaminophen Level < 2.0L, Ethyl Alcohol Level < 0.003 03/01/17 15:02: Urine Amphetamines Screen NEGATIVE, Urine Benzodiazepines Screen NEGATIVE, Urine Opiates Screen NEGATIVE, Urine Methadone Screen NEGATIVE, Urine Barbiturates Screen NEGATIVE, Urine Phencyclidine Screen NEGATIVE, Urine Cocaine Metabolite Screen NEGATIVE, Urine Cannabinoids Screen NEGATIVE CBC/BMP Laboratory Tests 03/01/17 14:42 Red Blood Count 4.26, Mean Corpuscular Volume 97.0 H, Mean Corpuscular Hemoglobin 33.9 H, Mean Corpuscular Hemoglobin Concent 35.0, Red Cell Distribution Width 12.8 Home Medications Scheduled Risperidone (Risperdal) 2 Mg Tab, 2 MG PO BID Allergies Coded Allergies: Trazodone (Verified Allergy, Mild, ITCHING, 10/31/12) Tramadol (Verified Allergy, Unknown, HIVES, 10/31/12) Shikha Calderon Mar 02, 2017 11:11
--- NOTE | 2017-03-02 16:33 | MHHPEPDOC ---
[facility] History & Physical History and Physical DATE OF ADMISSION: Mar 01, 2017 at 18:39 LEGAL STATUS AT ADMISSION: 9.39 CHIEF COMPLAINT: "I just need my clothes, and a shower, and to leave" HISTORY OF THE PRESENT ILLNESS: Patient is a 56-year-old female, who has a known history of schizophrenia and medication non-compliance brought to the hospital by police escort for evaluation after her sample case porter reported that she had been medication non-compliant since her last discharge with subsequent decline in functioning. Patient was reported to have no interest in performing ADLs x1 month and was noted to be wandering the streets in a disheveled condition. In the ED she was verbally aggressive and unable to be redirected, she was given Haldol 10mg, Ativan 2mg, and Benadryl 50mg after which she calmed down and slept. Patient stated that she was given "some sort of shot, then I ended up here and don't know what happened." Patient denies awareness of what has been happening in her life since last discharge. She acknowledges having an apartment in [place] and continually asks to be given her clothes and to be allowed to return there. She states that she was told by a doctor previously that she should not be taking Risperdal but could not remember why. Patient left the interview angrily because she wanted to return to her room to sleep, shower, and have her clothes returned so she could be discharged. PSYCHIATRIC REVIEW OF SYSTEMS: Unable to complete; patient did not engage in interview sufficiently before leaving PAST PSYCHIATRIC HISTORY: Prior Psychiatric Disorder: Schizophrenia; multiple hospitalizations at [facility], last in November 2016 with a similar presentation. Outpatient Treatment: Follows in [place] with an unknown provider, non- compliant. Suicidal/Self injurious: history of suicidal ideation and attempts per record; does not appear currently self-injurious. Psychotropic Medication History: multiple antidepressant and antipsychotic medication trials; most recently discharged on Risperdal with plan to convert to [place]A ALLERGIES: Please see below. FAMILY PSYCHIATRIC HISTORY: Patient did not answer; review of chart indicates her father may have been alcoholic. SOCIAL HISTORY: Patient reports living in [place]; previously known to be on SSI; has a sample case porter who assists her with medications, transport, and ADLs; known to have 3 daughters who are not involved in her care at this time SUBSTANCE ABUSE HISTORY: past history of alcoholism; unknown regarding patient' s current intake; unknown smoking history; unknown illicit drug use history PAST MEDICAL/SURGICAL HISTORY: Spinal fusion Vital Signs Date Time Temp Pulse Resp B/P (MAP) Pulse Ox O2 Delivery O2 Flow Rate FiO2 03/01/17 18:04 135 20 169/110 (129) 97 Room Air 03/01/17 18:21 98.2 MENTAL STATUS EXAMINATION: 56 year old female who appears older than the stated age; dressed in a hospital gown with disheveled appearance and poor hygiene. Her behavior is irritable and dismissive. Her speech is fluent, hostile in tone; with regular rate and rhythm. Her thought processes appear perseverative and mildly disorganized; she does not appear to have preserved abstraction. Does not appear currently suicidal or homicidal, patient did not answer this part of the interview; she also did not answer regarding hallucinations, however she does appear to be responding to internal stimuli during the interview. Patient oriented to self and location, unclear if oriented to date. Cognition appears impaired. Insight and Judgement are poor, possibly impaired by her current condition. Mood is "I want to leave here, I don't need to be here"; affect is angry, restricted range ; congruent to stated mood. DIAGNOSES: Schizophrenia vs. schizoaffective disorder Alcohol Use Disorder ASSESSMENT: This is a 56 year old woman with history of Schizophrenia vs. Schizoaffective Disorder and known medication non-compliance who presents for acute decompensation follwoing medication non-compliance after her last discharge from [facility]. Records indicate that at baseline she has poor insight and somewhat impulsive judgement, however she does not normally appear to respond to internal stimuli and is generally able to maintain her ADLs. At this time the patient does not appear to be a danger to herself or others, however she has acknowledged impaired self-care deficits. She will need to be hospitalized for safety, stabilization, and medication management. PROBLEM LIST: 1. Altered Perceptions 2. Self-care deficits 3. Altered Thoughts INITIAL TREATMENT PLAN: 1. Patient was admitted on a 9 2. Complete history was obtained. 3. With patients permission, family will be contacted and database will be expanded. 4. Patients medication regimen will be reviewed and changed accordingly. 5. Patient will be provided with protected environment. 6. Patient will be treated with individual, group, and milieu therapies. 7. Patient will receive supportive psych-education. 8. Discharge planning will commence immediately. 9. Outpatient follow-up treatment will be strongly recommended. 10. The initial treatment plan will focus initially on: * Active Psychosis * Self-care deficits * Substance abuse. ESTIMATED LENGTH OF STAY: 10-14 DAYS. TIME SPENT COUNSELING AND COORDINATING INITIAL CARE: 45 minutes. Medications Scheduled Risperidone (Risperdal) 2 Mg Tab, 2 MG PO BID, (Reported) Allergies Coded Allergies: Trazodone (Verified Allergy, Mild, ITCHING, 10/31/12) Tramadol (Verified Allergy, Unknown, HIVES, 10/31/12) VERONA BARRERA MD Mar 02, 2017 16:22
[2017-03-03 06:51] VITALS: BP 120/73
[2017-03-03] MEDS: risperiDONE 2 MG TAB PO SCH ×2 (08:05→21:00)
[2017-03-04] MEDS: risperiDONE 2 MG TAB PO SCH ×2 (08:44→20:24)
--- NOTE | 2017-03-04 21:19 | IPN ---
DATE: 03/03/2017 VITAL SIGNS: Temperature 98.0, pulse 87, respirations 19, blood pressure 120/73. CURRENT MEDICATIONS: Risperdal 2 mg twice a day. Patient refusing. HISTORY OF PRESENT ILLNESS: This is a 56-year-old white female with history of chronic schizophrenia and poor medication compliance. The patient claims she was told by an unknown psychiatrist that she should not take medications such as Risperdal. The patient is quite superficial. She states her appetite is fine. She claims her weight is stable. She reports sleeping well at night. She wants to be discharged to return home. MENTAL STATUS EXAMINATION: The patient is restless. She is up and down frequently. She paces. She looks older than her stated age. She appears paranoid and guarded. She denies hearing voices but may be covering. Insight appears poor. Judgment appears poor. She denies being suicidal but her poor insight and judgment places herself at risk in my opinion. DIAGNOSES: 1. Schizophrenia versus schizoaffective disorder. 2. Alcohol use disorder. PLAN: Encourage the use of Risperdal 2 mg by mouth twice a day.
--- NOTE | 2017-03-05 07:57 | MHIPN ---
DATE: 03/04/2017 VITAL SIGNS: Temperature 98.0, pulse 87, respirations 18, blood pressure 120/73. CURRENT MEDICATION: - Risperdal 2 mg twice daily, patient refusing HISTORY OF PRESENT ILLNESS: Patient spends a lot of time in her room but also is in the day room as well. She has no social interaction, however, with her peers. She is irritable with staff. She is uncooperative. She refuses to take her psychotropics claiming that other psychiatrists have advised her not to take any medication. Patient requesting her street clothes. No behavioral outbursts noted. MENTAL STATUS EXAMINATION: Patient is alert and oriented. She is not cooperative. She is irritable. She is anxious. She is on edge. She is restless. She is pacing. She appears quite guarded and paranoid. She refuses to answer if she is hearing voices or not. Insight and judgment appear quite impaired. Patient appears impulsive and a potential danger to herself and/or others. DIAGNOSIS: Schizophrenia versus schizoaffective disorder. Alcohol use disorder. PLAN: Encouraged compliance with Risperdal. Patient may wear her street clothes. Engage in milieu therapy.
[2017-03-05] MEDS: risperiDONE 2 MG TAB PO SCH ×2 (09:00→20:20)
--- NOTE | 2017-03-05 17:24 | MHIPNPDOC ---
[facility] Progress Note Progress Note DATE OF SERVICE: 03/05/17 HISTORY: Patient continues to refuse psychotropic medications stating "my doctor has told me I don't need that". Highly irritable with staff, cursing at them and demanding to be allowed to go home. Patient states that she knows she was walking around barefoot and disheveled and asks what is wrong with doing so. She emphatically states "I'm not a danger to myself, or nobody else. I never want to hurt no one." Patient states she has an apartment but is considering staying with her mother for a few days while she looks for a different place because "everything will be better if I'm somewhere else." Patient states she has a social sciences research scientist who brings her groceries and other supplies as needed. VITAL SIGNS: See below. NEW TEST RESULTS: no new labs, patient refusing draw. CURRENT MEDICATIONS: See below. MENTAL STATUS EXAMINATION: 56 year old woman who appears older than stated age; she is dressed in personal clothes which are appropriate to the season, her appearance is unkempt, her hygiene is poor-fair as she has notable body odor. Her speech is fluent, with normal rhythm; her tone and volume are somewhat labile with a tendency towards hostility. Her thought processes are logical, some magical thought, but with a concreteness to them. She denies suicidal or homicidal ideation; she also denies auditory or visual hallucinations but appears mildly preoccupied during the interview. Cognition appears grossly intact. Insight is fair, judgement is fair. Stated mood is "I want to go home"; angry affect, constricted range. DIAGNOSES: Schizophrenia Alcohol Use Disorder ASSESSMENT: Patient appears to be at her baseline despite non-compliance with antipsychotic medications. She has been participating with limited involvement in groups on the unit and has been at times verbally aggressive with staff. Patient primarily wants to return jace and states that she has no intention of continuing with treatment as she does not feel she needs any of the medications. There is concern from her director of casework department due to the her reported self -care deficits. Patient has been observed to be eating and taking care of her hygiene while on the unit. MANAGEMENT PLAN: discharge patient tomorrow if she maintains appropriate behavior with staff; plan to have patient follow-up with her regular outpatient provider and outpatient support services TIME SPENT: 30 minutes. Vital Signs Vital Signs Date Time Temp Pulse Resp B/P (MAP) Pulse Ox O2 Delivery O2 Flow Rate FiO2 03/03/17 06:51 98.0 87 18 120/73 (89) 03/01/17 22:18 96 03/01/17 19:04 Room Air Current Medications Current Medications Acetaminophen (Tylenol Tab) 650 mg Q6HP PRN PO HEADACHE or DISCOMFORT; Start at 23:30; Stop 03/31/17 at 23:29 Al Hydrox/Mg Hydrox/Simethicone (Mylanta) 30 ml Q4HP PRN PO HEARTBURN/ INDIGESTION; Start 03/01/17 at 23:30; Stop 03/31/17 at 23:29 Home Med (Med Rec Complete!) ASDIRECTED XX ; Start 03/01/17 at 19:15; Stop at 19:15; Status DC Lorazepam (Ativan) 1 mg Q4HP PRN PO ANXIETY; Start 03/01/17 at 23:30; Stop 03/08 at 23:29 Magnesium Hydroxide (Milk Of Magnesia) 30 ml DAILYPRN PRN PO CONSTIPATION; Start 03/01/17 at 23:30; Stop 03/31/17 at 23:29 Olanzapine (ZyPREXA ZYDIS) 10 mg Q4HP PRN PO ANXIETY/AGITATION; Start at 23:30; Stop 03/31/17 at 23:29 Risperidone (RisperDAL) 2 mg BID PO ; Start 03/02/17 at 09:00; Stop 04/01/17 at 08 :59 Allergies Coded Allergies: Trazodone (Verified Allergy, Mild, ITCHING, 10/31/12) Tramadol (Verified Allergy, Unknown, HIVES, 10/31/12) VERONA BARRERA MD Mar 05, 2017 17:24
[2017-03-06] MEDS: risperiDONE 2 MG TAB PO SCH (08:07)
--- NOTE | 2017-03-06 20:51 | MHDSPDOC ---
[facility] Discharge Summary Discharge Summary DATE OF ADMISSION: Mar 01, 2017 at 18:39 DATE OF DISCHARGE: Mar 06, 2017 at 09:20 DISCHARGE DIAGNOSES: 1. PARANOID SCHIZOPHRENIA REASON FOR ADMISSION: Patient was brought by the [place] Police because she was walking up and dwn the streets barefooted, disheveled, talking to herself. Her data security analyst reported patient hasn't bathed since she was discharged from the [facility], almost doesn't eat or eats unhealthy food (chips and soda), doesn't shower because she believes the water is poisoned and doesn't take care of her apartment (is filthy). CONSULTANTS INVOLVED: None. TREATMENT AND PROGRESS ON THE UNIT : Patient has refused to take medications as she did on her previous admission. She has always said that she wants to go home. She was not agitated, except for Sunday afternoon and yesterday, when she became loud at this junior copywriter's office, but then, she was able to control herself and apologized for being loud. She made it clear that she was not dangerous to self or others, she was nt hurting others, had been taken to [facility] because she was walking barefooted and because she had not bathed. Then she said that was [employer]'s business, she was not suicidal, nor homicidal. Patient refused to take her medications. HOSPITAL COURSE: As above DISCHARGE ASSESSMENT: patient was not suicidal, was not homicidal, was not agitated or aggressive. She has paranoid delusions but is able to control herself. MENTAL STATUS EXAMINATION ON DISCHARGE: Patient is a 56-year old female, who is alert, cooperative, dressed in personal clothes with fair eye contact. Speech is Sparse but coherent. Language skills are Fair. Thought processes including: Goal directed. Thought content: Coherent. Abstract reasoning, and computation: Limited. Description of associations: Good. Description of abnormal or psychotic thoughts: Paranoid delusions, denies auditory or visual hallucinations, denies suicidal or homicidal ideation. Judgment: Limited. Insight: Limited. Orientation to Oriented x 3. Recent and remote memory: Fair. Attention span and concentration: Fair. Language: Normal. Fund of knowledge: Fair. Mood: Slightly irritable. Affect: Congruent with mood. MEDICATIONS ON DISCHARGE: - Risperdal 2 mgs PO Bid for psychosis. PLAN/FOLLOWUP ARRANGEMENTS: Mental Health Appt 1 [facility] Established With This Provider Yes * Therapist Blanche Deras * Date Mar 12, 2017 * Time 13:30 * * Medical * Medical Follow Up [facility] * Established With This Provider No * Address of Clinic or Practice [facility], [address] * * Additional information Pt declines medical follow up and smoking cessation appointment. May call if needed. The amount of time spent in the coordination of care for this patient was approximately 45 minutes. Vital Signs/I&Os Vital Signs Date Time Temp Pulse Resp B/P (MAP) Pulse Ox O2 Delivery O2 Flow Rate FiO2 03/03/17 06:51 98.0 87 18 120/73 (89) 03/01/17 22:18 96 03/01/17 19:04 Room Air Medications Scheduled Risperidone (Risperdal) 2 Mg Tab, 2 MG PO BID, (Reported) Allergies Coded Allergies: Trazodone (Verified Allergy, Mild, ITCHING, 10/31/12) Tramadol (Verified Allergy, Unknown, HIVES, 10/31/12) ANILA GUERRERO MD Mar 06, 2017 20:51
== END 2017-03-06 09:20 | disposition home or self-care (01) | DRG 750 ==
LOC: M ED 13:27 → M ED INP 18:39 → M PSY 22:30
PROVIDERS: ADMIT Psychiatry & Neurology Psychiatry; ATTEND Psychiatry & Neurology Psychiatry
DX: F20.0 Paranoid schizophrenia (principal); E87.0 Hyperosmolality and hypernatremia; Z88.8 Allergy status to other drugs, medicaments and biological substances; F17.200 Nicotine dependence, unspecified, uncomplicated; D75.89 Other specified diseases of blood and blood-forming organs

== ENCOUNTER 2017-08-07 17:03 | Inpatient (IN) | payer OTHER ==
[2017-08-07] MEDS: HALOPERIDOL 5 MG/ML VIAL (J1630) IM (18:00)
[2017-08-07] MEDS: LORazepam 2 MG/ML VIAL (J2060) IM (18:00)
[2017-08-07] MEDS: diphenhydrAMINE INJ 50MG/ML VIAL (J1200) IM (18:00)
[2017-08-07 19:43] LABS: HEMATOCRIT 35.3 % (36.0-47.0); HEMOGLOBIN 11.8 g/dl (12.0-16.0); MEAN CORPUSCULAR HEMOGLOBIN 33.1 pg (27.0-33.0); MEAN CORPUSCULAR HGB CONC 33.4 g/dl (32.0-36.5); MEAN CORPUSCULAR VOLUME 98.9 fl (80.0-96.0); PLATELET COUNT, AUTOMATED 296 10^3/uL (150-450); RED BLOOD COUNT 3.57 10^6/uL (4.00-5.40); RED CELL DISTRIBUTION WIDTH 13.1 % (11.5-14.5); WHITE BLOOD COUNT 9.1 10^3/uL (4.0-10.0)
[2017-08-07 20:28] LABS: ACETAMINOPHEN LEVEL < 2.0 UG/ML (10.0-30.0); ALBUMIN 3.5 GM/DL (3.2-5.2); ALKALINE PHOSPHATASE 88 U/L (45-117); ALT/SGPT 22 U/L (12-78); ANION GAP 8 MEQ/L (8-16); AST/SGOT 23 U/L (7-37); BILIRUBIN,DIRECT < 0.1 MG/DL (0.0-0.2); BILIRUBIN,TOTAL 0.2 MG/DL (0.2-1.0); BLOOD UREA NITROGEN 19 MG/DL (7-18); CALCIUM LEVEL 8.6 MG/DL (8.5-10.1); CARBON DIOXIDE LEVEL 24 MEQ/L (21-32); CHLORIDE LEVEL 112 MEQ/L (98-107); CREATININE FOR GFR 0.73 MG/DL (0.55-1.02); ETHYL ALCOHOL (ETHANOL) < 0.003 % (0.000-0.010); GLOMERULAR FILTRATION RATE > 60.0 (>51); GLUCOSE, FASTING 102 MG/DL (70-105); POTASSIUM SERUM 4.3 MEQ/L (3.5-5.1); SALICYLATE LEVEL 1.8 MG/DL (5.0-30.0); SODIUM LEVEL 144 MEQ/L (136-145)
[2017-08-08 04:09] LABS: AMPHETAMINES LEVEL URINE NEGATIVE (NEGATIVE); BARBITURATES URINE NEGATIVE (NEGATIVE); BENZODIAZEPINES URINE NEGATIVE (NEGATIVE); CANNABINOIDS URINE NEGATIVE (NEGATIVE); COCAINE METABOLITE URINE NEGATIVE (NEGATIVE); METHADONE URINE NEGATIVE (NEGATIVE); OPIATES URINE NEGATIVE (NEGATIVE); PHENCYCLIDINE URINE NEGATIVE (NEGATIVE)
[2017-08-08] MEDS ORDERED: OLANZapine ORAL DISINTEGRATING TAB 5MG PO (05:45)
[2017-08-08] MEDS ORDERED: MOM 30ML SUSPENSION UDC PO (05:45)
[2017-08-08] MEDS ORDERED: MAALOX 30 ML SUSP *UDC PO (05:45)
[2017-08-08] MEDS ORDERED: traZODone 50 MG TAB PO (05:45)
[2017-08-08] MEDS: PALIPERIDONE 3 MG ER TAB (INVEGA) PO ×2 (09:00→21:00)
[2017-08-08] MEDS: LORazepam 2 MG/ML VIAL (J2060) IM (09:45)
[2017-08-08] MEDS: OLANZapine INTRAMUSCULAR 10 MG VIAL (S0166) IM (09:45)
[2017-08-08] MEDS: diphenhydrAMINE INJ 50MG/ML VIAL (J1200) IM (09:45)
[2017-08-08] MEDS ORDERED: LORazepam 1 MG TAB PO (13:15)
[2017-08-08] MEDS ORDERED: PALIPERIDONE 3 MG ER TAB (INVEGA) PO (21:00)
[2017-08-09 07:42] LABS: HEMATOCRIT 37.4 % (36.0-47.0); HEMOGLOBIN 12.1 g/dl (12.0-16.0); MEAN CORPUSCULAR HEMOGLOBIN 31.8 pg (27.0-33.0); MEAN CORPUSCULAR HGB CONC 32.4 g/dl (32.0-36.5); MEAN CORPUSCULAR VOLUME 98.2 fl (80.0-96.0); PLATELET COUNT, AUTOMATED 302 10^3/uL (150-450); RED BLOOD COUNT 3.81 10^6/uL (4.00-5.40); RED CELL DISTRIBUTION WIDTH 13.2 % (11.5-14.5)
[2017-08-09 08:03] LABS: FERRITIN 95 NG/ML (8-252); IRON (FE) 81 UG/DL (50-170); PERCENT SATURATION 28.3 % (13.2-45.0); TOTAL IRON BINDING CAPACITY 286 UG/DL (250-450)
[2017-08-09] MEDS: PALIPERIDONE 3 MG ER TAB (INVEGA) PO ×3 (09:00→21:00)
[2017-08-09] MEDS: LORazepam 2 MG/ML VIAL (J2060) IM ×2 (09:10→12:07)
[2017-08-09] MEDS: OLANZapine INTRAMUSCULAR 10 MG VIAL (S0166) IM (09:10)
[2017-08-09] MEDS: diphenhydrAMINE INJ 50MG/ML VIAL (J1200) IM ×2 (09:10→12:06)
[2017-08-09 10:06] LABS: FOLATE 13.9 NG/ML (>5.4); VITAMIN B12 LEVEL 211 PG/ML (247-911)
[2017-08-09] MEDS: HALOPERIDOL 5 MG/ML VIAL (J1630) IM (12:06)
[2017-08-09] MEDS: MIRTAZAPINE 15 MG ***SOLTAB PO (12:17)
[2017-08-10] MEDS: PALIPERIDONE 3 MG ER TAB (INVEGA) PO ×2 (09:00→21:00)
[2017-08-10] MEDS ORDERED: PALIPERIDONE 3 MG ER TAB (INVEGA) PO (09:00)
[2017-08-11] MEDS: PALIPERIDONE 3 MG ER TAB (INVEGA) PO ×2 (08:48→21:00)
[2017-08-12] MEDS: PALIPERIDONE 3 MG ER TAB (INVEGA) PO ×2 (09:00→20:40)
[2017-08-13] MEDS: **PENDING PPD ENTRY XX (09:00)
[2017-08-13] MEDS: PALIPERIDONE 3 MG ER TAB (INVEGA) PO ×2 (09:00→20:57)
[2017-08-14] MEDS: PALIPERIDONE 3 MG ER TAB (INVEGA) PO ×2 (09:00→20:53)
[2017-08-14] MEDS: **PENDING PPD ENTRY XX (09:00)
[2017-08-14] MEDS ORDERED: TUBERCULIN PPD 5 UNITS/0.1 ML ID (10:00)
[2017-08-14] MEDS: ACETAMINOPHEN TAB 650MG DOSE (2X325MG) PO (19:54)
[2017-08-15] MEDS: **PENDING PPD ENTRY XX (09:00)
[2017-08-15] MEDS: PALIPERIDONE 3 MG ER TAB (INVEGA) PO ×2 (09:00→21:00)
[2017-08-15] MEDS ORDERED: PPD DOCUMENTATION ENTRY MISC XX (10:00)
[2017-08-15] MEDS: ALPRAZolam 0.5 MG TAB PO (11:21)
[2017-08-16] MEDS: ALPRAZolam 0.5 MG TAB PO ×3 (08:47→20:24)
[2017-08-16] MEDS: **PENDING PPD ENTRY XX (08:48)
[2017-08-16] MEDS: PALIPERIDONE 3 MG ER TAB (INVEGA) PO ×2 (08:48→20:26)
[2017-08-16] MEDS: hydrOXYzine 50 MG TAB PO (18:51)
[2017-08-17] MEDS: PALIPERIDONE 3 MG ER TAB (INVEGA) PO (08:30)
[2017-08-17] MEDS: **PENDING PPD ENTRY XX (08:31)
[2017-08-17] MEDS: ALPRAZolam 0.5 MG TAB PO (09:12)
== END 2017-08-17 13:45 | disposition home or self-care (01) | DRG 755 ==
LOC: M ED INP 08-08 05:38 → M PSY 08-15 18:06 → M ED 17:03
DX: F43.10 Post-traumatic stress disorder, unspecified (principal); D64.9 Anemia, unspecified; F60.3 Borderline personality disorder; F19.90 Other psychoactive substance use, unspecified, uncomplicated; F17.210 Nicotine dependence, cigarettes, uncomplicated; Z88.8 Allergy status to other drugs, medicaments and biological substances; Z88.5 Allergy status to narcotic agent